=== PATIENT | male | born 1975 | race Caucasian/White ===

== ENCOUNTER 2020-04-08 09:24 | Outpatient (CLI) | payer MEDICARE, SELFPAY ==
[2020-04-08 09:54] LABS: Basophils Absolute Auto 0.03 K/mm3 (0.00-0.10); Basophils Percent Auto 0.5 % (0.0-1.0); Eosinophils Absolute Auto 0.12 K/mm3 (0.02-0.50); Eosinophils Percent Auto 1.9 % (1.0-6.0); Hematocrit 45.2 % (40.0-54.0); Hemoglobin 15.7 g/dL (14.0-18.0); Immature Granulocyte Absolute 0.02 K/mm3 (0.00-0.00); Immature Granulocyte Percent A 0.3 % (0.0-0.0); Lymphocytes Absolute Auto 1.99 K/mm3 (1.10-4.50); Lymphocytes Percent Auto 31.4 % (18.0-42.0); Mean Corpuscular HGB Conc 34.7 g/dL (32.0-36.0); Mean Corpuscular Hemoglobin 32.6 pg (27.0-31.0); Mean Platelet Volume 12.1 fl (8.7-11.0); Monocytes Absolute Auto 0.25 K/mm3 (0.10-0.90); Monocytes Percent Auto 3.9 % (2.0-11.0); Neutrophils Absolute Auto 3.9 K/mm3 (1.7-7.2); Platelet Count Result 172 K/mm3 (150-420); Red Blood Count 4.81 M/mm3 (4.70-6.10); Red Cell Distribution Width 12.6 % (11.6-14.4); White Blood Count 6.3 K/mm3 (4.8-10.8)
[2020-04-08 10:21] LABS: Anion Gap 10.7 mmol/L (7-16); Blood Urea Nitrogen 28 mg/dL (7-18); Calcium 8.6 mg/dL (8.5-10.1); Carbon Dioxide 29 mmol/L (21-32); Chloride 103 mmol/L (98-108); Estimated Glomerular Filt Rate 48; Glucose 93 mg/dL (70-99); Osmolality Calculated 291 mOsm/kg (285-295); Phosphorus 2.8 mg/dL (2.6-4.7); Potassium 4.7 mmol/L (3.5-5.1); Sodium 138 mmol/L (136-145)
== END 2020-04-08 09:25 | disposition home or self-care (01) ==
LOC: CHSLAB 09:27
PROVIDERS: PCP Internal Medicine; Visit Provider Internal Medicine Nephrology
DX: N18.9 Chronic kidney disease, unspecified (principal)
CPT/HCPCS: 36415; 80069; 85025

== ENCOUNTER 2020-08-26 09:12 | Outpatient (CLI) | payer MEDICARE, SELFPAY ==
[2020-08-26 09:23] LABS: Basophils Absolute Auto 0.02 K/mm3 (0.00-0.10); Basophils Percent Auto 0.3 % (0.0-1.0); Eosinophils Percent Auto 1.5 % (1.0-6.0); Hematocrit 44.3 % (40.0-54.0); Hemoglobin 14.9 g/dL (14.0-18.0); Immature Granulocyte Absolute 0.03 K/mm3 (0.00-0.00); Immature Granulocyte Percent A 0.4 % (0.0-0.0); Lymphocytes Absolute Auto 1.68 K/mm3 (1.10-4.50); Mean Corpuscular HGB Conc 33.6 g/dL (32.0-36.0); Mean Corpuscular Hemoglobin 31.7 pg (27.0-31.0); Mean Corpuscular Volume 94.3 fL (78.0-102.0); Mean Platelet Volume 11.8 fl (8.7-11.0); Monocytes Percent Auto 4.5 % (2.0-11.0); Neutrophils Absolute Auto 4.6 K/mm3 (1.7-7.2); Neutrophils Percent Auto 68.3 % (50.0-70.0); Platelet Count Result 157 K/mm3 (150-420); Red Cell Distribution Width 12.6 % (11.6-14.4); White Blood Count 6.7 K/mm3 (4.8-10.8)
[2020-08-26 09:53] LABS: Albumin Level 3.8 g/dL (3.4-5.0); Anion Gap 11 mmol/L (8-16); Blood Urea Nitrogen 28 mg/dL (7-18); Calcium 9.1 mg/dL (8.5-10.1); Carbon Dioxide 27 mmol/L (21-32); Chloride 104 mmol/L (98-108); Estimated Glomerular Filt Rate 48; Glucose 88 mg/dL (70-99); Osmolality Calculated 298 mOsm/kg (285-295); Phosphorus 4.2 mg/dL (2.6-4.7); Potassium 4.8 mmol/L (3.5-5.1); Sodium 142 mmol/L (136-145)
[2020-08-26 16:18] LABS: SARS-CoV-2 Ag Negative (Negative)
== END 2020-08-26 09:13 | disposition home or self-care (01) ==
PROVIDERS: PCP Internal Medicine; Visit Provider Internal Medicine Nephrology
DX: J06.9 Acute upper respiratory infection, unspecified (principal); N18.9 Chronic kidney disease, unspecified
CPT/HCPCS: 36415; 80069; 85025; 87426

== ENCOUNTER 2020-09-14 09:46 | Outpatient (CLI) | payer MEDICARE, SELFPAY ==
--- NOTE | ~2020-09-14 | XR_ITS ---
XR ribs RT 2V w CXR 2V DATE: 09/14/2020 11:04 INDICATION: Right lateral chest pain for 2 weeks, cough for 2 weeks. Shortness of breath. Covid expos ure. TECHNIQUE: PA and lateral chest. 3 views of the right ribs. COMPARISON: None FINDINGS: No fracture or bone destruction of the right rib cage is detected. Normal heart size. No hilar or mediastinal enlargement. No pulmonary infiltrate or consolidation, ple ural effusion or pulmonary vascular congestion or pneumothorax. IMPRESSION: No active cardiac pulmonary disease or right rib abnormality Reviewed, dictated and finalized at location A. FORM BUILDER
[2020-09-14 10:37] LABS: Basophils Absolute Auto 0.02 K/mm3 (0.00-0.10); Basophils Percent Auto 0.3 % (0.0-1.0); Eosinophils Percent Auto 1.5 % (1.0-6.0); Hematocrit 43.9 % (40.0-54.0); Hemoglobin 15.1 g/dL (14.0-18.0); Immature Granulocyte Absolute 0.02 K/mm3 (0.00-0.00); Immature Granulocyte Percent A 0.3 % (0.0-0.0); Lymphocytes Absolute Auto 1.65 K/mm3 (1.10-4.50); Lymphocytes Percent Auto 24.6 % (18.0-42.0); Mean Corpuscular HGB Conc 34.4 g/dL (32.0-36.0); Mean Corpuscular Hemoglobin 32.6 pg (27.0-31.0); Mean Corpuscular Volume 94.8 fL (78.0-102.0); Mean Platelet Volume 11.5 fl (8.7-11.0); Monocytes Absolute Auto 0.24 K/mm3 (0.10-0.90); Monocytes Percent Auto 3.6 % (2.0-11.0); Neutrophils Absolute Auto 4.7 K/mm3 (1.7-7.2); Neutrophils Percent Auto 69.7 % (50.0-70.0); Platelet Count Result 169 K/mm3 (150-420); Red Blood Count 4.63 M/mm3 (4.70-6.10); Red Cell Distribution Width 13.2 % (11.6-14.4); White Blood Count 6.7 K/mm3 (4.8-10.8)
[2020-09-14 10:56] LABS: D Dimer 0.19 mg/L (0.19-0.50)
[2020-09-14 10:57] LABS: SARS-CoV-2 Ag Negative (Negative)
[2020-09-14 11:01] LABS: Alanine Aminotransferase 31 U/L (16-63); Albumin Level 3.7 g/dL (3.4-5.0); Alkaline Phosphatase 88 U/L (46-116); Anion Gap 9 mmol/L (8-16); Aspartate Amino Transferase 15 U/L (15-37); Bilirubin,Total 0.2 mg/dL (0.00-1.00); Blood Urea Nitrogen 19 mg/dL (7-18); Calcium 8.7 mg/dL (8.5-10.1); Carbon Dioxide 26 mmol/L (21-32); Chloride 104 mmol/L (98-108); Creatine Kinase 91 U/L (39-308); Estimated Glomerular Filt Rate 58; Glucose 124 mg/dL (70-99); Osmolality Calculated 291 mOsm/kg (285-295); Potassium 3.8 mmol/L (3.5-5.1); Sodium 139 mmol/L (136-145); Total Protein 6.6 g/dL (6.4-8.2)
[2020-09-15 18:01] LABS: SARS-CoV-2 RNA PCR Negative
== END 2020-09-14 09:47 | disposition home or self-care (01) ==
LOC: CHSLAB 09:48
PROVIDERS: PCP Internal Medicine; Visit Provider Internal Medicine
DX: R07.9 Chest pain, unspecified (principal); R06.02 Shortness of breath; Z20.828 Contact with and (suspected) exposure to other viral communicable diseases
CPT/HCPCS: 36415; 71046; 71100; 80053; 82550; 82553; 84484; 85025; 85380; 87426; 87635; C9803; U0003

== ENCOUNTER 2021-01-28 11:20 | Outpatient (CLI) | payer MEDICARE, SELFPAY ==
[2021-01-28 11:34] LABS: Basophils Absolute Auto 0.04 K/mm3 (0.00-0.10); Basophils Percent Auto 0.6 % (0.0-1.0); Eosinophils Absolute Auto 0.12 K/mm3 (0.02-0.50); Eosinophils Percent Auto 1.8 % (1.0-6.0); Hematocrit 47.3 % (40.0-54.0); Hemoglobin 16.4 g/dL (14.0-18.0); Immature Granulocyte Absolute 0.02 K/mm3 (0.00-0.00); Immature Granulocyte Percent A 0.3 % (0.0-0.0); Lymphocytes Absolute Auto 1.28 K/mm3 (1.10-4.50); Lymphocytes Percent Auto 19.6 % (18.0-42.0); Mean Corpuscular HGB Conc 34.7 g/dL (32.0-36.0); Mean Corpuscular Hemoglobin 32.4 pg (27.0-31.0); Mean Corpuscular Volume 93.5 fL (78.0-102.0); Mean Platelet Volume 10.8 fl (8.7-11.0); Monocytes Absolute Auto 0.25 K/mm3 (0.10-0.90); Monocytes Percent Auto 3.8 % (2.0-11.0); Neutrophils Absolute Auto 4.8 K/mm3 (1.7-7.2); Neutrophils Percent Auto 73.9 % (50.0-70.0); Platelet Count Result 175 K/mm3 (150-420); Red Blood Count 5.06 M/mm3 (4.70-6.10); Red Cell Distribution Width 13.2 % (11.6-14.4); White Blood Count 6.5 K/mm3 (4.8-10.8)
[2021-01-28 12:32] LABS: Alanine Aminotransferase 40 U/L (16-63); Alkaline Phosphatase 86 U/L (46-116); Anion Gap 11 mmol/L (8-16); Aspartate Amino Transferase 16 U/L (15-37); Bilirubin,Total 0.2 mg/dL (0.00-1.00); Blood Urea Nitrogen 23 mg/dL (7-18); Calcium 8.8 mg/dL (8.5-10.1); Carbon Dioxide 26 mmol/L (21-32); Chloride 102 mmol/L (98-108); Estimated Glomerular Filt Rate > 60; Glucose 102 mg/dL (70-99); Osmolality Calculated 291 mOsm/kg (285-295); Phosphorus 3.4 mg/dL (2.6-4.7); Potassium 4.5 mmol/L (3.5-5.1); Sodium 139 mmol/L (136-145); Total Protein 6.8 g/dL (6.4-8.2)
== END 2021-01-28 11:21 | disposition home or self-care (01) ==
LOC: CHSLAB 11:22
PROVIDERS: PCP Internal Medicine; Visit Provider Internal Medicine
DX: N18.30 Chronic kidney disease, stage 3 unspecified (principal); Z01.84 Encounter for antibody response examination
CPT/HCPCS: 36415; 80053; 84100; 85025; 86769

== ENCOUNTER 2022-01-16 11:28 | Outpatient (CLI) | payer MEDICARE, SELFPAY ==
[2022-01-16 11:43] LABS: Basophils Absolute Auto 0.04 K/mm3 (0.00-0.10); Basophils Percent Auto 0.5 % (0.0-1.0); Eosinophils Absolute Auto 0.12 K/mm3 (0.02-0.50); Eosinophils Percent Auto 1.4 % (1.0-6.0); Hematocrit 49.6 % (40.0-54.0); Hemoglobin 16.5 g/dL (14.0-18.0); Immature Granulocyte Absolute 0.03 K/mm3 (0.00-0.00); Immature Granulocyte Percent A 0.3 % (0.0-0.0); Lymphocytes Absolute Auto 1.77 K/mm3 (1.10-4.50); Lymphocytes Percent Auto 20.3 % (18.0-42.0); Mean Corpuscular HGB Conc 33.3 g/dL (32.0-36.0); Mean Corpuscular Hemoglobin 31.8 pg (27.0-31.0); Mean Corpuscular Volume 95.6 fL (78.0-102.0); Mean Platelet Volume 12.1 fl (8.7-11.0); Monocytes Absolute Auto 0.38 K/mm3 (0.10-0.90); Monocytes Percent Auto 4.4 % (2.0-11.0); Neutrophils Absolute Auto 6.4 K/mm3 (1.7-7.2); Neutrophils Percent Auto 73.1 % (50.0-70.0); Platelet Count Result 144 K/mm3 (150-420); Red Blood Count 5.19 M/mm3 (4.70-6.10); Red Cell Distribution Width 12.7 % (11.6-14.4); White Blood Count 8.7 K/mm3 (4.8-10.8)
[2022-01-16 11:46] LABS: Add Urine Microscopic? NO; Appearance Urine Clear (Clear); Bilirubin Urine Negative (Negative); Blood Urine Negative (Negative); Color Urine Yellow (Yellow); Glucose Urine UA Negative (Negative); Ketones Urine Negative (Negative); Leukocyte Esterase Ur Negative (Negative); Nitrate Urine Negative (Negative); Protein Urine Negative (Negative); Specific Grav Ur 1.015 (1.010-1.020); Urobilinogen Urine 0.2 mg/dL (0.2-1.0); pH Urine 5.5 (5.0-8.0)
[2022-01-16 12:01] LABS: Alanine Aminotransferase 26 U/L (16-63); Alkaline Phosphatase 71 U/L (46-116); Anion Gap 6 mmol/L (8-16); Aspartate Amino Transferase 16 U/L (15-37); Bilirubin,Total 0.2 mg/dL (0.00-1.00); Blood Urea Nitrogen 28 mg/dL (7-18); Calcium 9.2 mg/dL (8.5-10.1); Carbon Dioxide 29 mmol/L (21-32); Chloride 102 mmol/L (98-108); Cholesterol 254 mg/dL (0-200); Estimated Glomerular Filt Rate 58; Glucose 98 mg/dL (70-99); HDL Direct 31 mg/dL (40-60); LDL Cholesterol Calculated 167 mg/dL (<130); Osmolality Calculated 289 mOsm/kg (285-295); Phosphorus 3.4 mg/dL (2.6-4.7); Potassium 4.2 mmol/L (3.5-5.1); Sodium 137 mmol/L (136-145); Total Protein 6.9 g/dL (6.4-8.2); Triglycerides 278 mg/dL (0-150)
[2022-01-18 14:27] LABS: Vitamin D 25 Hydroxy 46 ng/mL (30-100)
== END 2022-01-16 11:29 | disposition home or self-care (01) ==
LOC: CHSLAB 11:31
PROVIDERS: PCP Internal Medicine; Visit Provider Internal Medicine Nephrology
DX: E78.5 Hyperlipidemia, unspecified (principal); I10 Essential (primary) hypertension; N18.9 Chronic kidney disease, unspecified; N25.0 Renal osteodystrophy; E55.9 Vitamin D deficiency, unspecified
CPT/HCPCS: 36415; 80053; 80061; 81003; 82306; 84100; 85025

== ENCOUNTER 2022-07-24 10:15 | Outpatient (CLI) | payer MEDICARE, SELFPAY ==
[2022-07-24 10:37] LABS: Basophils Absolute Auto 0.03 K/mm3 (0.00-0.10); Basophils Percent Auto 0.4 % (0.0-1.0); Eosinophils Percent Auto 1.2 % (1.0-6.0); Hematocrit 46.5 % (40.0-54.0); Hemoglobin 16.1 g/dL (14.0-18.0); Immature Granulocyte Absolute 0.02 K/mm3 (0.00-0.00); Immature Granulocyte Percent A 0.2 % (0.0-0.0); Lymphocytes Absolute Auto 1.85 K/mm3 (1.10-4.50); Lymphocytes Percent Auto 22.2 % (18.0-42.0); Mean Corpuscular HGB Conc 34.6 g/dL (32.0-36.0); Mean Corpuscular Hemoglobin 33.3 pg (27.0-31.0); Mean Corpuscular Volume 96.1 fL (78.0-102.0); Mean Platelet Volume 11.9 fl (8.7-11.0); Monocytes Absolute Auto 0.35 K/mm3 (0.10-0.90); Monocytes Percent Auto 4.2 % (2.0-11.0); Neutrophils Percent Auto 71.8 % (50.0-70.0); Platelet Count Result 144 K/mm3 (150-420); Red Blood Count 4.84 M/mm3 (4.70-6.10); Red Cell Distribution Width 12.8 % (11.6-14.4); White Blood Count 8.3 K/mm3 (4.8-10.8)
[2022-07-24 10:39] LABS: Add Urine Microscopic? YES; Appearance Urine Clear (Clear); Bilirubin Urine Negative (Negative); Blood Urine Negative (Negative); Color Urine Yellow (Yellow); Glucose Urine UA Negative (Negative); Ketones Urine Trace (Negative); Leukocyte Esterase Ur Negative (Negative); Nitrate Urine Negative (Negative); Protein Urine Negative (Negative); Urobilinogen Urine 0.2 mg/dL (0.2-1.0)
[2022-07-24 10:46] LABS: Bacteria Urine Trace /hpf; Mucus Urine Few /lpf; RBC Urine 0-2 /hpf (0-2); WBC Urine None seen /hpf (0-3)
[2022-07-24 10:55] LABS: Alanine Aminotransferase 30 U/L (16-63); Alkaline Phosphatase 71 U/L (46-116); Anion Gap 7 mmol/L (8-16); Aspartate Amino Transferase 17 U/L (15-37); Bilirubin,Total 0.4 mg/dL (0.00-1.00); Blood Urea Nitrogen 30 mg/dL (7-18); Calcium 8.8 mg/dL (8.5-10.1); Carbon Dioxide 26 mmol/L (21-32); Chloride 103 mmol/L (98-108); Cholesterol 231 mg/dL (0-200); Estimated Glomerular Filt Rate 53; Glucose 94 mg/dL (70-99); HDL Direct 33 mg/dL (40-60); LDL Cholesterol Calculated 166 mg/dL (<130); Osmolality Calculated 288 mOsm/kg (285-295); Potassium 4.3 mmol/L (3.5-5.1); Sodium 136 mmol/L (136-145); Total Protein 6.8 g/dL (6.4-8.2); Triglycerides 162 mg/dL (0-150)
== END 2022-07-24 10:16 | disposition home or self-care (01) ==
LOC: CHSLAB 10:17
PROVIDERS: PCP Internal Medicine; Visit Provider Internal Medicine
DX: E78.5 Hyperlipidemia, unspecified (principal); I10 Essential (primary) hypertension
CPT/HCPCS: 36415; 80053; 80061; 81001; 85025

== ENCOUNTER 2022-08-15 16:57 | Outpatient (CLI) | payer MEDICARE, SELFPAY ==
[2022-08-15 17:57] LABS: Hematocrit 48.1 % (40.0-54.0); Hemoglobin 16.4 g/dL (14.0-18.0); Mean Corpuscular HGB Conc 34.1 g/dL (32.0-36.0); Mean Corpuscular Volume 96.8 fL (78.0-102.0); Mean Platelet Volume 12.9 fl (8.7-11.0); Platelet Count Result 139 K/mm3 (150-420); Red Blood Count 4.97 M/mm3 (4.70-6.10); Red Cell Distribution Width 12.9 % (11.6-14.4); White Blood Count 8.3 K/mm3 (4.8-10.8)
[2022-08-15 18:13] LABS: Alanine Aminotransferase 30 U/L (16-63); Albumin Level 3.9 g/dL (3.4-5.0); Alkaline Phosphatase 69 U/L (46-116); Anion Gap 9 mmol/L (8-16); Aspartate Amino Transferase 17 U/L (15-37); Bilirubin,Total 0.3 mg/dL (0.00-1.00); Blood Urea Nitrogen 35 mg/dL (7-18); Calcium 9.1 mg/dL (8.5-10.1); Carbon Dioxide 30 mmol/L (21-32); Chloride 106 mmol/L (98-108); Estimated Glomerular Filt Rate 41; Glucose 89 mg/dL (70-99); Osmolality Calculated 307 mOsm/kg (285-295); Potassium 4.4 mmol/L (3.5-5.1); Sodium 145 mmol/L (136-145); Total Protein 6.4 g/dL (6.4-8.2)
[2022-08-19 10:40] LABS: Parathyroid Intact 33 pg/mL (14-64)
[2022-08-22 20:00] LABS: Vitamin D 25 Hydroxy 59 ng/mL (30-100)
== END 2022-08-15 16:58 | disposition home or self-care (01) ==
LOC: CHSLAB 17:00
PROVIDERS: PCP Internal Medicine; Visit Provider Internal Medicine Nephrology
DX: N18.31 Chronic kidney disease, stage 3a (principal)
CPT/HCPCS: 36415; 80053; 82306; 83970; 85027

== ENCOUNTER 2022-09-12 09:29 | Outpatient (CLI) | payer MEDICARE, SELFPAY ==
[2022-09-12 09:46] LABS: Basophils Absolute Auto 0.03 K/mm3 (0.00-0.10); Basophils Percent Auto 0.4 % (0.0-1.0); Eosinophils Absolute Auto 0.12 K/mm3 (0.02-0.50); Eosinophils Percent Auto 1.5 % (1.0-6.0); Hemoglobin 17.3 g/dL (14.0-18.0); Immature Granulocyte Absolute 0.02 K/mm3 (0.00-0.00); Immature Granulocyte Percent A 0.2 % (0.0-0.0); Lymphocytes Absolute Auto 1.63 K/mm3 (1.10-4.50); Mean Corpuscular HGB Conc 34.6 g/dL (32.0-36.0); Mean Corpuscular Volume 95.2 fL (78.0-102.0); Mean Platelet Volume 12.2 fl (8.7-11.0); Monocytes Absolute Auto 0.29 K/mm3 (0.10-0.90); Monocytes Percent Auto 3.6 % (2.0-11.0); Neutrophils Absolute Auto 6.1 K/mm3 (1.7-7.2); Neutrophils Percent Auto 74.3 % (50.0-70.0); Platelet Count Result 138 K/mm3 (150-420); Red Blood Count 5.25 M/mm3 (4.70-6.10); Red Cell Distribution Width 12.9 % (11.6-14.4); White Blood Count 8.1 K/mm3 (4.8-10.8)
[2022-09-12 10:01] LABS: Hemoglobin A1C 5.3 % (<5.7)
[2022-09-12 10:45] LABS: Alanine Aminotransferase 20 U/L (16-63); Albumin Level 3.9 g/dL (3.4-5.0); Alkaline Phosphatase 75 U/L (46-116); Anion Gap 10 mmol/L (8-16); Aspartate Amino Transferase 13 U/L (15-37); Bilirubin Direct 0.1 mg/dL (0-0.2); Bilirubin,Total 0.3 mg/dL (0.00-1.00); Blood Urea Nitrogen 24 mg/dL (7-18); Calcium 8.8 mg/dL (8.5-10.1); Carbon Dioxide 27 mmol/L (21-32); Chloride 105 mmol/L (98-108); Cholesterol 221 mg/dL (0-200); Estimated Glomerular Filt Rate 60; Glucose 96 mg/dL (70-99); HDL Direct 31 mg/dL (40-60); LDL Cholesterol Calculated 126 mg/dL (<130); Osmolality Calculated 298 mOsm/kg (285-295); Phosphorus 3.1 mg/dL (2.6-4.7); Potassium 4.5 mmol/L (3.5-5.1); Sodium 142 mmol/L (136-145); Thyroid Stimulating Hormone 0.74 uIU/mL (0.36-3.74); Total Protein 6.5 g/dL (6.4-8.2); Triglycerides 321 mg/dL (0-150)
[2022-09-12 10:58] LABS: Partial Thromboplastin Time 31.2 SEC (23.90-30.70); Prothrombin Time 10.8 Seconds (9.50-12.10)
[2022-09-14 19:35] LABS: Vitamin D 25 Hydroxy 56 ng/mL (30-100)
== END 2022-09-12 09:30 | disposition home or self-care (01) ==
PROVIDERS: Anesthesiology; PCP Internal Medicine
DX: N18.9 Chronic kidney disease, unspecified (principal); Z79.899 Other long term (current) drug therapy
CPT/HCPCS: 36415; 80053; 80061; 82248; 82306; 83036; 84100; 84443; 85025; 85610; 85730

== ENCOUNTER 2022-09-19 10:27 | Day surgery (SDC) | payer MEDICARE, SELFPAY ==
[2022-09-05 10:47] VITALS: BMI 26.5
--- NOTE | 2022-09-05 10:57 | PC.NURSE ---
Report to the Outpatient Waiting Room, entrance under the green pavilion located off [facility], at time 1000 on date 09/19/22. Planned Procedure Time: 1200. Time changes happen often and if your time is changed the preop area will call you the afternoon before. - You and your visitor will be asked to self-screen and do not enter if you have any COVID symptoms. - Only one visitor is requested with a max of two and NO children visitors are allowed at this time. - The patient visitor may be requested to leave or wait in car when not with patient due to distancing restrictions. - A mask is REQUIRED within the hospital. Patients may have clear liquids (water, carbonated beverages, clear teas, apple juice) until 3 hours prior to surgery with a maximum of 20 ounces. - No food from midnight until time of surgery Take the following medications with a SIP of water the morning of surgery: MIRTAZAPINE, SERTRALINE, VERAPAMIL Medications to discontinue per physician: N/A Date to take last dose: N/A Please no make-up, nail macedonian, hairspray, perfume, deodorant, or body powder the day of surgery. No jewelry (including any body piercings) or valuables the day of surgery, leave them at home. Please take a shower or bath the night before, or the morning of, surgery with an antibacterial soap (HIBICLENS). Wear comfortable, loose fitting clothing. - Jewelry must be removed prior to entering the operating room. Rings and piercings that are not removed may be cut off. - The hospital will not accept responsibility for valuables. - Please leave all valuables, including medications, at home the day of surgery. If you are going home after surgery, a licensed hazmat cdl a driver must drive you home. - NO public transportation without another adult if you receive anesthesia. - We recommend that an adult stay with you for 24 hours following discharge. - We also recommend that you do not drive, make important decision, drink alcoholic beverages, or take any drugs that were not prescribed by your health care provider for at least 24 hours after your discharge time. Follow any additional instructions given to you from your surgeon. If you or anyone in your household have experienced Covid symptoms in the past week, please notify your surgeon or the nurse liaison at the phone number below for possible testing. Telephone instructions given to PT - WALLY JACOBSON and asked if any additional questions and then verbalized understanding. Patient advised to call surgeon office or pre surgery nurse liaison [phone] if any additional questions.
[2022-09-19] VITALS (13 sets, daily range): BP systolic 109–130; BP diastolic 73–93; PULSE 54–83; RESP 12–20; TEMP 36.2–36.7; O2SAT 95–100
--- NOTE | 2022-09-19 10:27 | ECG_ITS ---
Measurements Intervals [place] Rate: 64 P: 67 ME: 165 QRS: 42 QRSD: 87 T: 38 QT: 389 QTc: 404 Interpretive Statements SINUS RHYTHM NORMAL ECG NO PREVIOUS ECG AVAILABLE FOR COMPARISON Electronically Signed On 09-19-2022 11:51:24 STRADDLE CARRIER OPERATOR by Jhon Fonseca D.O.
--- NOTE | 2022-09-19 11:06 | WPDANESEPPF ---
Anes - Initial Pre Proc Eval Procedure: Operation Date: 09/19/22 13:00 Proposed Procedures p Laparoscopic Recurrent Right Inguinal Hernia Repair with Mesh, Left Inguinal Hernia Repair with Mesh, Davinci Assisted, - Telly Khanna DO s Open Umbilical Hernia Repair - Telly Khanna DO Date/Time: 09/19/22 11:06 Surgeon: Telly Khanna DO Pre Op Diagnosis: recurrent rt ing hernia,left ing hernia, umb aly Patient Data Age: 47 Gender: M Height: 1.93 m Weight: 99 kg Allergies Allergy/AdvReac Type Severity Reaction Status Date / Time No Known Allergies Allergy Verified 09/05/22 10:45 Home Medications Medication Instructions Recorded Confirmed Type clonazepam 0.5 mg tablet 0.25 mg PO BID 07/31/22 09/19/22 History losartan 100 mg tablet 100 mg PO DAILY 07/31/22 09/19/22 History mirtazapine 30 mg tablet 30 mg PO DAILY 07/31/22 09/19/22 History sertraline 150 mg capsule 150 mg PO DAILY 07/31/22 09/19/22 History verapamil 240 mg 24 hr 240 mg PO DAILY 07/31/22 09/19/22 History capsule,extended release Patient hx anesthesia problems: none Family hx anesthesia problems: none Results Review: All pre-operative results and documents have been reviewed as part of the pre-operative evaluation. [facility] Past Medical History Medical History (Updated 09/19/22 @ 11:07 by Paolo Gaspar DO) CKD (chronic kidney disease) Depression with anxiety High cholesterol Hypertension KENNY (obstructive sleep apnea) Polycystic liver disease Surgical History Surgical History H/O right inguinal hernia repair H/O vasectomy Family History Family History Father Heart disease Mother , 54 Hypertension Cancer of kidney Sibling , 51 Diabetes mellitus Heart disease Social History Social History Smoking packs per day: 1 Smoking cigarettes per day: 20.0 Years smoked: 30 Smoking pack-years: 30.00 Smoking status: Current every day smoker Tobacco type: cigarettes Alcohol intake: never Substance use: current Substance use type: marijuana Living arrangements: with family Additional occupation/education comments: disabled Spiritual care concerns: No Anes - Eval Final PreProcedure Day of Procedure 09/19/22 11:06 Patient weight: overweight Heart: regular rate and rhythm Lungs: clear to auscultation Airway: Mallampati scale class 1 Neurological: alert and oriented Last oral intake: >/= 8 hours ASA classification: III Emergent: no Anesthetic plan: proceed Anesthesia type and monitoring: general ETT and standard monitoring Results Review: All pre-operative results and documents have been reviewed as part of the pre-operative evaluation. Informed Consent: The patient's anesthetic plan and its attendant risks and benefits were discussed with the patient/family/POA. Questions were solicited and answers provided to the satisfaction of the patient/family/POA.
[2022-09-19] MEDS: ACETAMINOPHEN 500 MG TABLET 1000 MG PO (11:10)
[2022-09-19] MEDS: LACTATED RINGERS 1,000 ML 30 ML IV CONT ×3 (11:15→16:50)
[2022-09-19] MEDS: KETOROLAC 15 MG/ML VIAL (*BKC) IV PUSH (11:29)
[2022-09-19 11:43] LABS: Partial Thromboplastin Time 29.6 SECONDS (22.3-36.8)
--- NOTE | 2022-09-19 13:27 | PM.IMHP ---
H&P: HPI History of Present Illness Date/Time: 09/19/22 13:27 Chief Complaint: recurrent right inguinal hernia, left inguinal hernia, umbilical hernia Narrative: 47 yo man presents for multiple hernia repairs. He denies any changes since last seen in office. Review of Systems Review of Systems: All systems reviewed & are unremarkable except as noted in HPI and below Constitutional: Constitutional: Denies chills, Denies fever(s), Denies headache(s) and Denies weight loss Eyes: Eyes: Denies change in vision ENT: Denies dizziness, Denies headache(s), Denies neck mass and Denies throat swelling Cardiovascular: Cardiovascular: Denies chest pain, Denies lightheadedness and Denies dyspnea Respiratory: Respiratory: Denies cough, Denies dyspnea and Denies wheezing Gastrointestinal: Gastrointestinal: Denies abdominal pain, Denies change in bowel habits, Denies nausea and Denies vomiting Genitourinary: Genitourinary: Denies hematuria and Denies dysuria Musculoskeletal: Musculoskeletal: Reports as per HPI Integumentary/Breasts: Skin/Breast: Reports as per HPI Neurologic: Denies dizziness and Denies headache(s) Allergic/Immunologic: Allergic/Immunologic: Denies throat swelling and Denies wheezing PMFSH Past Medical History Medical History (Updated 09/19/22 @ 11:07 by Paolo Gaspar DO) CKD (chronic kidney disease) Depression with anxiety High cholesterol Hypertension KENNY (obstructive sleep apnea) Polycystic liver disease Surgical History Surgical History H/O right inguinal hernia repair H/O vasectomy Family History Family History Father Heart disease Mother , 54 Hypertension Cancer of kidney Sibling , 51 Diabetes mellitus Heart disease Social History Social History Smoking packs per day: 1 Smoking cigarettes per day: 20.0 Years smoked: 30 Smoking pack-years: 30.00 Smoking status: Current every day smoker Tobacco type: cigarettes Alcohol intake: never Substance use: current Substance use type: marijuana Living arrangements: with family Additional occupation/education comments: disabled Spiritual care concerns: No Meds Home Medications and Allergies Home Medications Medication Instructions Recorded Confirmed Type clonazepam 0.5 mg tablet 0.25 mg PO BID 07/31/22 09/19/22 History losartan 100 mg tablet 100 mg PO DAILY 07/31/22 09/19/22 History mirtazapine 30 mg tablet 30 mg PO DAILY 07/31/22 09/19/22 History sertraline 150 mg capsule 150 mg PO DAILY 07/31/22 09/19/22 History verapamil 240 mg 24 hr 240 mg PO DAILY 07/31/22 09/19/22 History capsule,extended release Allergies Allergy/AdvReac Type Severity Reaction Status Date / Time No Known Allergies Allergy Verified 09/05/22 10:45 Vital Signs Vital Signs - 24 hr 09/19/22 10:48 Temperature 36.7 C Pulse Rate 69 Respiratory Rate 20 Blood Pressure 114/75 Pulse Oximetry 99 Oxygen Delivery Room Air Exam Const: General: no acute distress and alert Orientation/consciousness: patient oriented x3 HENMT: Head: normocephalic and atraumatic Ears: hearing grossly normal bilaterally Face/Nose/Sinus: Normal nares present Mouth: Yes Normal oral and palatal mucosa present Eyes: Periorbital: periorbital findings normal Sclera: sclerae normal EOM: EOMs intact bilaterally Neck: Neck: normal visual inspection, no lymphadenopathy and trachea midline Chest: Chest palpation & inspection: normal inspection of the chest Resp: Effort & Inspection: normal respiratory effort Auscultation: clear to auscultation bilaterally Cardio: Jugular venous distension: no JVD Rate: regular rate Rhythm: regular rhythm Heart sounds: S1 normal heart sound present and S2 normal heart sound present Peripheral pulses: Per
--- NOTE | 2022-09-19 13:32 | WPDHPUPDATE1 ---
History and Physical Update Update Date/Time: 09/19/22 13:32 History and Physical has been reviewed, including an updated exam of the patient. There are NO changes in the patient's condition. Risks, benefits, and alternatives have been discussed and questions answered. Patient agrees to proceed with procedure.
[2022-09-19] MEDS: ceFAZolin 2 GM/D5W 50 ML 2 GM/50 ML BAG IVPB (13:51)
[2022-09-19] MEDS: BUPIVACAINE/EPINEPHRINE 0.5% 30 ML VIAL INFILTRATE (14:26)
--- NOTE | 2022-09-19 15:46 | W.PM.PROC2 ---
Procedure Note - Detailed Date of Procedure 09/19/22 Pre-op Diagnosis 1. Umbilical hernia 2. Recurrent right inguinal hernia 3. Left inguinal hernia Post-op Diagnosis Same Procedure Performed 1. 1 cm umbilical hernia repair 2. Laparoscopic recurrent right inguinal hernia repair with mesh, da Meggan assisted 3. Laparoscopic left inguinal hernia repair with mesh, da Meggan assisted Surgeon Telly Khanna, DO Anesthesia General and Local (0.5% bupivacaine with epinephrine) Indications This is a 47-year-old man who presented with a bulge in his left groin that he noticed about 6 months ago. He states that he felt a pop and noticed a bulge. He has minimal discomfort associated with this. He also notices a small recurrent bulge in the right groin region and a bulge at his umbilicus. He has a history of an open right inguinal hernia repair in 2009. On exam he was found to have a small umbilical hernia containing fat, a small reducible recurrent right inguinal hernia, and a moderate-sized reducible left inguinal hernia. Discussions were made with the patient about treatment options and decision was made to proceed with open umbilical hernia repair and robotic assisted laparoscopic bilateral inguinal hernia repairs. Findings Upon entering the abdomen laparoscopically, the patient was found to have a moderate-sized reducible indirect left inguinal hernia and a small direct recurrent right inguinal hernia. Just above this in the lower abdomen there were also possible small bilateral spigelian hernias developing, however this just appeared to be a small dimple in the peritoneum in that region of the normal location for a spigelian hernia. When inspecting the remainder of the abdomen, there did appear to be a large retroperitoneal cyst that was bulging up just inferior to the transverse colon. This appeared soft and non pulsatile and was just to the right of midline possibly representing a pancreatic cyst, duodenal cyst, or kidney cyst. This was left alone due to no prior imaging to confirm its origin. The recurrent right inguinal hernia appeared to be in the same location of the prior plug. The plug still appeared in proper position but some of the hernia sac was protruding just superior to this. Robotic transabdominal preperitoneal approach was utilized for each side. Once the hernia sac was reduced and a wide enough preperitoneal pocket was created on each side, I then placed a large 3DMax mid mesh overlying the myopectineal orifice on each side. No specimens were obtained for pathology. The umbilical hernia measured about 1 cm and was repaired using 0 Ethibond [id number] sutures. A total of 2 sutures placed transversely to approximate the fascia. Description of Procedure Procedure as well as risks, benefits, and alternatives were discussed with the patient. Written consent was obtained and placed in chart prior to procedure. Patient was brought back to surgical suite. He was placed supine on operating table. Time-out was done to confirm patient and procedure. He was then intubated by Anesthesia Department. His abdomen was prepped and draped in sterile fashion using chlorhexidine prep. 0.5% bupivacaine with epinephrine was infiltrated at each location for incision. A 12 millimeter transverse incision was made just superior to the umbilicus using a 15 blade scalpel. Blunt dissection was carried out down to the linea alba. A vertical incision was made at the linea alba using a 15 blade scalpel. The peritoneum was then bluntly entered. A 12 millimeter trocar was inserted and carbon dioxide insufflation was used to create a pneumoperitoneum. A camera was inserted and the abdominal cavity was inspected. The patient was placed in slight Trendelenburg position. An 8 millimeter incision was made on the right lateral abdomen and an 8 millimeter trocar was inserted under direct visualization. Another 8 millimeter incision was made in the left lateral abdom
[2022-09-19] MEDS: fentaNYL CITRATE INJ (*CRX) 100 MCG/2 ML VIAL 25 MCG IV PUSH ×2 (16:47→16:50)
[2022-09-19] MEDS: oxyCODONE HCL (*CRX) 5 MG TAB IR PO (17:38)
== END 2022-09-19 20:14 | disposition home or self-care (01) ==
PROVIDERS: Anesthesiology; PCP Internal Medicine; Visit Provider Surgery
PROC: 8E0Y4CZ Robotic Assisted Procedure of Lower Extremity, Percutaneous Endoscopic Approach (ICD-10-PCS; CPT 49650; principal; 2022-09-19 13:00)
PROC: (CPT 49591; 2022-09-19 13:00)
DX: K42.9 Umbilical hernia without obstruction or gangrene (principal); K40.90 Unilateral inguinal hernia, without obstruction or gangrene, not specified as recurrent; K40.91 Unilateral inguinal hernia, without obstruction or gangrene, recurrent; I12.9 Hypertensive chronic kidney disease with stage 1 through stage 4 chronic kidney disease, or unspecified chronic kidney disease; N18.9 Chronic kidney disease, unspecified; E78.00 Pure hypercholesterolemia, unspecified; F41.8 Other specified anxiety disorders; G47.33 Obstructive sleep apnea (adult) (pediatric); K76.89 Other specified diseases of liver; F17.210 Nicotine dependence, cigarettes, uncomplicated; F12.90 Cannabis use, unspecified, uncomplicated
CPT/HCPCS: 49591; 49651; 49650; S2900; 36415; 85730; 86850; 86900; 86901; 93005; A9270; C1781; J0690; J1170; J1885; J2250; J3010; J7120

== ENCOUNTER 2023-01-03 10:45 | Outpatient (CLI) | payer MEDICARE, SELFPAY ==
[2023-01-03 10:59] LABS: Hematocrit 52.9 % (40.0-54.0); Mean Corpuscular Hemoglobin 32.8 pg (27.0-31.0); Mean Corpuscular Volume 96.4 fL (78.0-102.0); Mean Platelet Volume 12.1 fl (8.7-11.0); Platelet Count Result 145 K/mm3 (150-420); Red Blood Count 5.49 M/mm3 (4.70-6.10); Red Cell Distribution Width 12.7 % (11.6-14.4)
[2023-01-03 11:26] LABS: Alanine Aminotransferase 27 U/L (16-63); Albumin Level 4.2 g/dL (3.4-5.0); Alkaline Phosphatase 87 U/L (46-116); Anion Gap 8 mmol/L (8-16); Aspartate Amino Transferase 16 U/L (15-37); Bilirubin,Total 0.3 mg/dL (0.00-1.00); Blood Urea Nitrogen 29 mg/dL (7-18); Calcium 9.4 mg/dL (8.5-10.1); Carbon Dioxide 30 mmol/L (21-32); Chloride 102 mmol/L (98-108); Estimated Glomerular Filt Rate 49; Glucose 91 mg/dL (70-99); Osmolality Calculated 295 mOsm/kg (285-295); Phosphorus 3.8 mg/dL (2.6-4.7); Potassium 4.8 mmol/L (3.5-5.1); Sodium 140 mmol/L (136-145)
[2023-01-07 21:30] LABS: Parathyroid Intact 43 pg/mL (14-64)
[2023-01-10 13:41] LABS: Vitamin D 25 Hydroxy 46 ng/mL (30-100)
== END 2023-01-03 10:46 | disposition home or self-care (01) ==
LOC: CHSLAB 10:47
PROVIDERS: PCP Internal Medicine; Visit Provider Internal Medicine Nephrology
DX: N18.31 Chronic kidney disease, stage 3a (principal)
CPT/HCPCS: 36415; 80053; 82306; 83970; 84100; 85027

== ENCOUNTER 2023-08-07 14:40 | Outpatient (CLI) | payer MEDICARE, SELFPAY ==
[2023-08-07 14:56] LABS: Basophils Absolute Auto 0.03 K/mm3 (0.00-0.10); Basophils Percent Auto 0.4 % (0.0-1.0); Eosinophils Percent Auto 1.4 % (1.0-6.0); Hematocrit 49.3 % (40.0-54.0); Hemoglobin 16.9 g/dL (14.0-18.0); Immature Granulocyte Absolute 0.02 K/mm3 (0.00-0.00); Immature Granulocyte Percent A 0.3 % (0.0-0.0); Lymphocytes Absolute Auto 1.64 K/mm3 (1.10-4.50); Lymphocytes Percent Auto 23.1 % (18.0-42.0); Mean Corpuscular HGB Conc 34.3 g/dL (32.0-36.0); Mean Corpuscular Hemoglobin 32.9 pg (27.0-31.0); Mean Corpuscular Volume 95.9 fL (78.0-102.0); Monocytes Absolute Auto 0.31 K/mm3 (0.10-0.90); Monocytes Percent Auto 4.4 % (2.0-11.0); Neutrophils Percent Auto 70.4 % (50.0-70.0); Platelet Count Result 139 K/mm3 (150-420); Red Blood Count 5.14 M/mm3 (4.70-6.10); Red Cell Distribution Width 12.7 % (11.6-14.4); White Blood Count 7.1 K/mm3 (4.8-10.8)
[2023-08-07 15:34] LABS: Albumin Level 3.5 g/dL (3.4-5.0); Alkaline Phosphatase 81 U/L (46-116); Anion Gap 5 mmol/L (8-16); Bilirubin,Total 0.3 mg/dL (0.00-1.00); Blood Urea Nitrogen 28 mg/dL (7-18); Calcium 9.1 mg/dL (8.5-10.1); Carbon Dioxide 34 mmol/L (21-32); Chloride 102 mmol/L (98-108); Cholesterol 235 mg/dL (0-200); Estimated Glomerular Filt Rate 44; Glucose 103 mg/dL (70-99); HDL Direct 27 mg/dL (40-60); Osmolality Calculated 297 mOsm/kg (285-295); Potassium 4.5 mmol/L (3.5-5.1); Sodium 141 mmol/L (136-145); Total Protein 6.2 g/dL (6.4-8.2)
[2023-08-07 15:44] LABS: LDL Cholesterol Calculated 61 mg/dL (<130); Triglycerides 735 mg/dL (0-150)
[2023-08-07 15:45] LABS: LDL Cholesterol Direct 123 mg/dL (0-130)
[2023-08-07 15:50] LABS: Alanine Aminotransferase 21 U/L (16-63); Aspartate Amino Transferase 19 U/L (15-37)
== END 2023-08-07 14:41 | disposition home or self-care (01) ==
PROVIDERS: PCP Internal Medicine; Visit Provider Internal Medicine
DX: N18.2 Chronic kidney disease, stage 2 (mild) (principal); I12.9 Hypertensive chronic kidney disease with stage 1 through stage 4 chronic kidney disease, or unspecified chronic kidney disease; E78.5 Hyperlipidemia, unspecified
CPT/HCPCS: 36415; 80053; 80061; 83721; 85025

== ENCOUNTER 2023-10-09 16:39 | Outpatient (CLI) | payer MEDICARE, SELFPAY ==
[2023-10-09 16:56] LABS: Basophils Absolute Auto 0.03 K/mm3 (0.00-0.10); Basophils Percent Auto 0.4 % (0.0-1.0); Eosinophils Absolute Auto 0.09 K/mm3 (0.02-0.50); Eosinophils Percent Auto 1.2 % (1.0-6.0); Hematocrit 47.6 % (40.0-54.0); Hemoglobin 15.9 g/dL (14.0-18.0); Immature Granulocyte Absolute 0.01 K/mm3 (0.00-0.00); Immature Granulocyte Percent A 0.1 % (0.0-0.0); Immature Platelet Fraction Pct 7.1 % (1.0-7.0); Lymphocytes Absolute Auto 1.78 K/mm3 (1.10-4.50); Lymphocytes Percent Auto 24.3 % (18.0-42.0); Mean Corpuscular HGB Conc 33.4 g/dL (32.0-36.0); Mean Corpuscular Hemoglobin 31.9 pg (27.0-31.0); Mean Corpuscular Volume 95.6 fL (78.0-102.0); Mean Platelet Volume 11.6 fl (8.7-11.0); Monocytes Absolute Auto 0.32 K/mm3 (0.10-0.90); Monocytes Percent Auto 4.4 % (2.0-11.0); Neutrophils Absolute Auto 5.1 K/mm3 (1.7-7.2); Neutrophils Percent Auto 69.6 % (50.0-70.0); Platelet Count Result 143 K/mm3 (150-420); Red Blood Count 4.98 M/mm3 (4.70-6.10); Red Cell Distribution Width 12.8 % (11.6-14.4); White Blood Count 7.3 K/mm3 (4.8-10.8)
[2023-10-09 18:19] LABS: Alanine Aminotransferase 24 U/L (16-63); Alkaline Phosphatase 75 U/L (46-116); Anion Gap 13 mmol/L (8-16); Aspartate Amino Transferase 19 U/L (15-37); Bilirubin,Total 0.3 mg/dL (0.00-1.00); Blood Urea Nitrogen 29 mg/dL (7-18); CRP 0.6 mg/dL (0.0-0.9); Calcium 9.2 mg/dL (8.5-10.1); Carbon Dioxide 28 mmol/L (21-32); Chloride 103 mmol/L (98-108); Estimated Glomerular Filt Rate 47; Glucose 95 mg/dL (70-99); Osmolality Calculated 303 mOsm/kg (285-295); Potassium 4.4 mmol/L (3.5-5.1); Sodium 144 mmol/L (136-145); Total Protein 6.7 g/dL (6.4-8.2)
== END 2023-10-09 16:40 | disposition home or self-care (01) ==
LOC: CHSLAB 16:42
PROVIDERS: PCP Internal Medicine; Visit Provider Internal Medicine
DX: I12.9 Hypertensive chronic kidney disease with stage 1 through stage 4 chronic kidney disease, or unspecified chronic kidney disease (principal); N18.2 Chronic kidney disease, stage 2 (mild); R51.9 Headache, unspecified
CPT/HCPCS: 36415; 80053; 85025; 85055; 86140

== ENCOUNTER 2023-11-07 14:33 | Outpatient (CLI) | payer MEDICARE, SELFPAY ==
--- NOTE | ~2023-11-07 | XR_ITS ---
EXAMINATION: [id number]_[id number]_CR DATE: 11/07/2023 14:56 INDICATION: Headache. Left arm numbness. TECHNIQUE: 3 views of cervical spine were obtained. COMPARISON: None. FINDINGS: There is 4 degrees dextrocurvature of cervical spine. Vertebral body heights are normal. Th ere is mildly decreased disc height at C4-C5 and C5-C6. The facet joints are unremarkable. No central canal stenosis or prevertebral soft tissue swelling. IMPRESSION: 1. Mild cervical spondylosis. Reviewed, dictated and finalized at location E. ATTENDANT
== END 2023-11-07 14:34 | disposition home or self-care (01) ==
LOC: CHSIMG 14:35
PROVIDERS: PCP Internal Medicine; Visit Provider Internal Medicine
DX: N18.32 Chronic kidney disease, stage 3b (principal); I12.9 Hypertensive chronic kidney disease with stage 1 through stage 4 chronic kidney disease, or unspecified chronic kidney disease; R51.9 Headache, unspecified; M43.02 Spondylolysis, cervical region
CPT/HCPCS: 72040

== ENCOUNTER 2024-08-06 09:59 | Outpatient (CLI) | payer MEDICARE, SELFPAY ==
[2024-08-06 10:29] LABS: Hematocrit 51.2 % (40.0-54.0); Mean Corpuscular HGB Conc 35.2 g/dL (32-36); Mean Corpuscular Hemoglobin 32.4 pg (27.0-31.0); Mean Corpuscular Volume 92.1 fL (78.0-102.0); Platelet Count Result 143 K/mm3 (150-420); Red Blood Count 5.56 M/mm3 (4.70-6.10); Red Cell Distribution Width 13.1 % (11.6-14.4); White Blood Count 7.6 K/mm3 (4.8-10.8)
[2024-08-06 11:13] LABS: Albumin Level 3.9 g/dL (3.4-5.0); Anion Gap 11 mmol/L (4-12); Blood Urea Nitrogen 33 mg/dL (7-18); Calcium 9.4 mg/dL (8.5-10.1); Carbon Dioxide 27 mmol/L (21-32); Chloride 101 mmol/L (98-108); Estimated Glomerular Filt Rate 44; Glucose 93 mg/dL (70-99); Osmolality Calculated 295 mOsm/kg (285-295); Phosphorus 4.2 mg/dL (2.6-4.7); Potassium 4.4 mmol/L (3.5-5.1); Sodium 139 mmol/L (136-145)
[2024-08-07 06:54] LABS: Vitamin D 25 Hydroxy 41 ng/mL (30-100)
[2024-08-07 12:44] LABS: Parathyroid Intact 74 pg/mL (16-77)
== END 2024-08-06 10:00 | disposition home or self-care (01) ==
PROVIDERS: PCP Internal Medicine; Visit Provider Internal Medicine Nephrology
DX: N18.31 Chronic kidney disease, stage 3a (principal)
CPT/HCPCS: 36415; 80069; 82306; 83970; 85027

== ENCOUNTER 2025-01-30 07:40 | Outpatient (CLI) | payer MEDICARE, SELFPAY ==
--- OUTSIDE RECORDS SUMMARY | 2025-01-30 07:45 | XMS_ITS | Clinical Summary ---
Author Organization [facility] Address [address] [place] [id number] Care Team Providers Care Assistant Boiler Operator Name Role Phone Luis E Harrington MD Primary Care Provider [phone] Allergies Active Allergy Reactions Criticality Noted Date Comments Citalopram Other (See comments) Low 11/17/2015 disoriented Rosuvastatin Joint pain Low 08/17/2022 Lisinopril Other (See comments) Low 02/16/2016 cough Medications acetaminophen-c affeine 500-65 mg tablet Take 2 tablets by mouth every 4 (four) hours as needed 08/29/2017 Active cholecalciferol (VITAMIN D-3) 2,000 unit tablet Take 1 tablet (2,000 Units total) by mouth Active losartan (COZAAR) 100 mg tablet Take 1 tablet (100 mg total) by mouth Active mirtazapine (REMERON) 30 mg tablet Take 1 tablet (30 mg total) by mouth Active senna-docusate (PERICOLACE) 8.6-50 mg Take 1 tablet by mouth as directed Patient takes 1 tab on Mon, Tues, Thur, Fri, Sun and takes 2 tabs on Wed and Sat. Active verapamil ER (VERELAN) 240 mg 24 hr capsule Take 1 capsule (240 mg total) by mouth Active sertraline (ZOLOFT) 50 mg tablet Take 2 tablets (100 mg total) by mouth daily Active mv,calcium,min/ iron/folic/vitK (MULTI FOR HER ORAL) Take 1 tablet by mouth daily Active cetirizine (ZyrTEC) 10 mg tablet Take 1 tablet (10 mg total) by mouth 2 (two) times a day as needed Active clonazePAM (KlonoPIN) 0.5 mg tablet Take 1 tablet (0.5 mg total) by mouth 2 (two) times a day Active albuterol HFA (PROVENTIL HFA,VENTOLIN HFA,PROAIR HFA) 90 mcg/actuation inhaler INHALE 2 PUFFS BY MOUTH EVERY 6 HOURS NEEDED 08/25/2020 Active levoFLOXacin (LEVAQUIN) 750 mg tablet TAKE 1 TABLET BY MOUTH EVERY 48 HOURS 08/25/2020 Active amoxicillin 500 mg capsule TAKE 1 CAPSULE BY MOUTH EVERY 8 HOURS 01/25/2021 Active ibuprofen (ADVIL,MOTRIN) 800 mg tablet Take 800 mg by mouth 3 (three) times a day with meals 01/25/2021 Active sertraline (ZOLOFT) 100 mg tablet 1 tablet (100 mg total) Take two tablets daily (total 200mg) 12/29/2022 Active verapamil SR (CALAN SR) 240 mg CR tablet Take 1 tablet (240 mg total) by mouth nightly at bedtime. 10/28/2022 Active Active Problems Problem Noted Date Diagnosed Date CKD (chronic kidney disease) stage 3, GFR 30-59 ml/min 09/02/2020 CKD (chronic kidney disease) stage 2, GFR 60-89 ml/min 11/21/2018 ADPKD (autosomal dominant polycystic kidney dise ase) 11/21/2018 Renal osteodystrophy 11/21/2018 Essential hypertension, benign 08/29/2018 Encounters Date Type Department Care Team Description 11/13/2024 SARKAR Care Coordination [facility] Care Coordination [address] [place] [phone] Arti Marshall from Last 3 Months Family History Medical History Relation Name Comments Hypertension Father Kidney disease Father Heart disease Maternal Grandmother Cancer Mother Relation Name Status Comments Father Maternal Grandmother Mother Social History Tobacco Use Types Packs/Day Years Used Date Smoking Tobacco: Every Day Cigarettes Smokeless Tobacco: Never Tobacco Cessation:Ready to Q uit: Yes; Counseling Given: No Sex and Gender Information Value Date Recorded Sex Assigned at Not on file Legal Sex Male 9:07 AM RADIATION ONCOLOGY NURSE Gender Identity Male 11/21/2018 9:20 AM RADIATION ONCOLOGY NURSE Sexual Orientation Not on file Obstetrics History Last Filed Vital Signs Vital Sign Reading Time Taken Comments Blood Pressure 137/95 08/07/2024 9:49 AM RADIATION ONCOLOGY NURSE Pulse 71 08/07/2024 9:49 AM RADIATION ONCOLOGY NURSE Temperature 36.4 C (97.6 F) 08/07/2024 9:49 AM RADIATION ONCOLOGY NURSE Respiratory Rate - - Oxygen Saturation - - Inhaled Oxygen Concentration - - Weight 99.3 kg (219 lb) 08/07/2024 9:49 AM RADIATION ONCOLOGY NURSE Height 193 cm (6' 4 ) 08/07/2024 9:49 AM RADIATION ONCOLOGY NURSE Body Mass Index 26.66 08/07/2024 9:49 AM RADIATION ONCOLOGY NURSE Plan of Treatment Health Maintenance Due Date Last Done Comments Colon Cancer Screening-Colonoscopy 1975 Depression Screening 1975 Hepatitis C Screening 1975 Prostate Cancer Screening-PSA 1975 DTaP/Tdap/Td Vaccine (3 - Tdap) 1986 5, 1975 Hepatitis B Screening 1993 Regular Well Visit/Exam 18-64 1993 Pneumococcal vaccine <65 (1 of 2 - PCV) 1994 Zoster Vaccine (1 of 2) 2025 Influenza Vaccine (Season Ended) 2025 Insurance [employer] MEDICARE Care Teams Assistant Boiler Operator Relationship Specialty Start Date End Date Luis E Harrington MD PCP - General Internal Medicine 03/06/19
--- OUTSIDE RECORDS SUMMARY | 2025-01-30 07:45 | XMS_ITS | Clinical Summary ---
Author Organization [facility] Address [address] [place] [address] Care Team Providers Care Funeral Director'S Assistant Name Role Phone Luis E Harrington MD Primary Care Provider [phone] Source Comments [facility],non-owned Affiliates and Associated Physician Practices is amultiple site organization consisting of ambulatory clinics and hospital sitesin [place], [place], [place] and [place]. This disclosure is being madepursuant to the Care Everywhere program and may not contain all information available regarding this patient. Last updated 18.[facility] Allergies Active Allergy Reactions Criticality Noted Date Comments Citalopram Other Low 11/17/2015 disoriented Lisinopril Other Low 02/16/2016 cough Medications * Be aware that medications may not be up to date on this document. Alwaysverify current medications with the patient. Acetaminophen-C affeine (EXCEDRIN TENSION HEADACHE) 500-65 MG Take by mouth. 08/29/2017 Active raNITIdine (ZANTAC) 300 MG capsule Take 300 mg by mouth DAILY. 30 tablet 1 04/11/2017 Active LORazepam (ATIVAN) 1 MG tablet Take 1 mg by mouth BID. 03/14/2017 Active losartan (COZAAR) 100 MG tablet Take 100 mg by mouth at bedtime Active mirtazapine (REMERON) 30 MG tablet Take 45 mg by mouth at bedtime Active Sennosides-Docu sate Sodium (SENNA-DOCUSATE SODIUM) 8.6-50 MG Take 1 tablet by mouth at bedtime Active verapamil SR 24hr (VERELAN) 240 MG capsule Take 240 mg by mouth at bedtime Active Cholecalciferol 2000 UNITS Take 1 tablet by mouth once daily Active traMADol (ULTRAM) 50 MG tabletIndicatio ns:Adult type polycystic kidney Take 2 tablets by mouth every 12 hours as needed for Pain 120 tablet 2 11/20/2018 Active Active Problems Problem Noted Date Diagnosed Date Essential hypertension, benign 08/29/2018 Chronic kidney disease (CKD), stage III (moderat e) 08/28/2018 Cystic disease of liver 03/14/2017 Overview (12/17/2017): ADPKD Chronic tension-type headache, not intractable 0 02/28/2016 Adult type polycystic kidney 11/17/2015 Family History Medical History Relation Name Comments Arthritis Brother Heart Disease Father Kidney Disease Father in 60's ESRD; Status: Diabetes Maternal Grandmother Cancer Mother renal carcinoma Hypertension Mother Status: d Diabetes Sister Relation Name Status Comments Brother Father Maternal Grandmother Mother Sister Social History Tobacco Use Types Packs/Day Years Used Date Smoking Tobacco: Former Cigarettes 0.5 28.2 0 09/17/1987 - 11/22/2015 Smokeless Tobacco: Never Tobacco Cessation:Counseling Given: No Alcohol Use Standard Drinks/Week Comments No 0 (1 standard drink = 0.6 oz pur e alcohol) Sex and Gender Information Value Date Recorded Sex Assigned at Not on file Legal Sex Male 5:13 PM BIOANALYST Gender Identity Not on file Sexual Orientation Not on file Last Filed Vital Signs Vital Sign Reading Time Taken Comments Blood Pressure 129/96 08/28/2018 1:33 PM BIOANALYST Pulse 96 08/28/2018 1:33 PM BIOANALYST Temperature 36.3 C (97.4 F) 08/28/2018 1:33 PM BIOANALYST Respiratory Rate 18 02/27/2018 1:48 PM CDT Oxygen Saturation 99% 08/28/2018 1:33 PM BIOANALYST Inhaled Oxygen Concentration - - Weight 115.7 kg (255 lb) 08/28/2018 1:33 PM BIOANALYST Height 190.5 cm (6' 3 ) 08/28/2018 1:33 PM BIOANALYST Body Mass Index 31.87 08/28/2018 1:33 PM BIOANALYST Plan of Treatment Health Maintenance Due Date Last Done Comments OGPAPI (AGES 45-75) - COL ON CA SCREENING 1975 COLON MONITORING 1975 COLONOSCOPY - COLON CA SCREENING 1975 CT COLONOGRAPHY - COLON CA SCREENING 1975 Colorectal Cancer Screening 1975 FIT - COLON CA SCREENING 1975 FLEX SIG - COLON CA SCREENING 1975 LIPID TESTING 1975 Opioid Medication Agreement - Annual 1975 HIV SCREENING 1990 HEPATITIS C SCREENING 01/01/1993 DTAP/TDAP/TD VACCINES (1 - Tdap) 1994 HEPATITIS B VACCINE (1 of 3 - 19+ 3-dose series) 1994 SCREENING FOR DIABETES 05/10/2019 6, 02/16/2016, 11/17/2015 COVID-19 VACCINE (1 - 2023-2 5 season) 2024 DEPRESSION SCREENING 09/17/2024 PNEUMOCOCCAL VACCINE 50+ (1 of 1 - PCV) 2025 ZOSTER VACCINE (1 of 2) 2025 INFLUENZA VACCINE (Season Ended) 2025 HIB VACCINE Aged Out No longer eligi ble based on patient's age to complete this topic HPV VACCINE Aged Out No longer eligi ble based on patient's age to complete this topic MENINGOCOCCAL (Group B) VACCINE SHARED DECISION-MAKING Aged Out No longer eligible based on patient's age to complete this topic MENINGOCOCCAL GROUPS A/C/Y/W VACCINE Aged Out No longer eligible b ased on patient's age to complete this topic Procedures Procedure Name Priority Date/Time Associated Diagnosis Comments RENAL FUNCTION PANEL Routine 05/10/2016 3:26 PM CDT from Last 3 Months or Most Recently Relevant to Health Maintenance Results * RENAL FUNCTION PANEL (05/10/2016 3:26 PM CDT) BUN 20 7 - 26 mg/dL [facility] Creatinine 1.1 0.6 - 1.2 mg/dL [facility] Sodium 141 136 - 145 mmol/L [facility] Potassium 4.1 3.5 - 4.5 mmol/L [facility] Chloride 104 98 - 107 mmol/L [facility] CO2 27 22 - 29 mmol/L [facility] Glucose 99 70 - 115 mg/dL [facility] Albumin 3.7 3.4 - 5.0 g/dL [facility] Calcium 9.7 8.4 - 10.2 mg/dL [facility] Phosphorus 4.0 2.3 - 4.7 mg/dL [facility] Anion Gap 14 8 - 18 [facility] BUN/Creatinine Ratio 18 7 - 23 [facility] Osmolality Calculated 295 270 - 300 mOsm/kg [facility] eGFR >60 >60 mL/min/1.7 3 m2 [facility] Blood specimen (specimen) BLOOD SPECIMEN / Unknown 05/10/2016 3:26 PM CDT 05/10/2016 3:33 PM CDT us Kathryn Mayers MD LAB - CHEMISTRY ORDERABLES Final Result [facility] [address] [phone] from Last 3 Months or Most Recently Relevant to Health Maintenance Insurance MEDICARE MEDICARE Care Teams Funeral Director'S Assistant Relationship Specialty Start Date End Date Luis E Harrington MD [address] [place], [place] [id number] PCP - General 10/21/15
--- OUTSIDE RECORDS SUMMARY | 2025-01-30 07:45 | XMS_ITS | Referral Summary ---
Author Organization [facility] Address [address] [place] [address] Care Team Providers Care Automobile Travel Club Counselor Name Role Phone Luis E Harrington MD Primary Care Provider [phone] Encounters Date Type Department Care Team Description 11/13/2024 [facility] Care Coordination [facility] [address] [place] [id number] Arti Marshall from Last 3 Months Allergies Active Allergy Reactions Criticality Noted Date [...] Renal osteodystrophy 11/21/2018 Essential hypertension, benign 08/29/2018 Social History Tobacco Use Types Packs/Day Years Used Date Smoking Tobacco: Every Day Cigarettes Smokeless Tobacco: Never Tobacco Cessation:Ready to Q uit: Yes; Counseling Given: No Sex and Gender Information Value Date Recorded Sex Assigned at Not on file Legal Sex Male 9:07 AM SUGAR PRESSER Gender Identity Male 11/21/2018 9:20 AM SUGAR PRESSER Sexual Orientation Not on file Last Filed Vital Signs Vital Sign Reading Time Taken Comments Blood Pressure 137/95 08/07/2024 9:49 AM SUGAR PRESSER Pulse 71 08/07/2024 9:49 AM SUGAR PRESSER Temperature 36.4 C (97.6 F) 08/07/2024 9:49 AM SUGAR PRESSER Respiratory Rate - - Oxygen Saturation - - Inhaled Oxygen Concentration - - Weight 99.3 kg (219 lb) 08/07/2024 9:49 AM SUGAR PRESSER Height 193 cm (6' 4 ) 08/07/2024 9:49 AM SUGAR PRESSER Body Mass Index 26.66 08/07/2024 9:49 AM SUGAR PRESSER Plan of Treatment Not on file Insurance [employer] MEDICARE Care Teams Automobile Travel Club Counselor Relationship Specialty Start Date End Date Lusi E Harrington MD PCP - General Internal Medicine 03/06/19
--- OUTSIDE RECORDS SUMMARY | 2025-01-30 07:45 | XMS_ITS | Encounter Summary ---
Author Organization [facility] Address [address] [place] [address] Phone Care Team Providers Care Pediatric Genetic Counselor Name Role Phone No, Physician Primary Care Provider [phone] Luis E Harrington MD Primary Care Provider [phone] Encounter Details Date Type Department Care Team (Latest Contact Info) Description 09/24/2015 Orders Only [facility] Scanning, Provider Social History Tobacco Use Types Packs/Day Years Used Date Smoking Tobacco: Never Assessed Sex and Gender Information Value Date Recorded Sex Assigned at Not on file Legal Sex Male 9:07 AM RECORD PRESS OPERATOR Gender Identity Male 11/21/2018 9:20 AM RECORD PRESS OPERATOR Sexual Orientation Not on file documented as of this encounter Plan of Treatment Not on file documented as of this encounter Procedures Procedure Name Priority Date/Time Associated Diagnosis Comments SCAN - RADIOLOGY/IMAGING 09/24/2015 documented in this encounter Results * SCAN - RADIOLOGY/IMAGING (09/24/2015) Anatomical Region Laterality Modality Other us Provider Scanning Final Result documented in this encounter Visit Diagnoses Not on filedocumented in this encounter Care Teams Pediatric Genetic Counselor Relationship Specialty Start Date End Date No, Physician PCP - General 11/21/18 03/05/19 Luis E Harrington MD PCP - General Internal Medicine 03/06/19 documented as of this encounter
--- OUTSIDE RECORDS SUMMARY | 2025-01-30 07:45 | XMS_ITS | Encounter Summary ---
Author Organization [facility] Address [address] [place] [address] Phone Care Team Providers Care Coke Crusher Operator Name Role Phone No, Physician Primary Care Provider [phone] Luis E Harrington MD Primary Care Provider [phone] Encounter Details Date Type Department Care Team (Latest Contact Info) Description 07/12/2016 Orders Only [facility] Scanning, Provider Social History Tobacco Use Types Packs/Day Years Used Date Smoking Tobacco: Never Assessed Sex and Gender Information Value Date Recorded Sex Assigned at Not on file Legal Sex Male 9:07 AM JACQUARD LOOM FIXER Gender Identity Male 11/21/2018 9:20 AM JACQUARD LOOM FIXER Sexual Orientation Not on file documented as of this encounter Plan of Treatment Not on file documented as of this encounter Procedures Procedure Name Priority Date/Time Associated Diagnosis Comments SCAN - RADIOLOGY/IMAGING 07/12/2016 documented in this encounter Results * SCAN - RADIOLOGY/IMAGING (07/12/2016) Anatomical Region Laterality Modality Other us Provider Scanning Final Result documented in this encounter Visit Diagnoses Not on filedocumented in this encounter Care Teams Coke Crusher Operator Relationship Specialty Start Date End Date No, Physician PCP - General 11/21/18 03/05/19 Luis E Harrington MD PCP - General Internal Medicine 03/06/19 documented as of this encounter
--- OUTSIDE RECORDS SUMMARY | 2025-01-30 07:45 | XMS_ITS | Encounter Summary ---
Author Organization [facility] Address [address] [place] [address] Phone Care Team Providers Care Architectural Drafting Instructor Name Role Phone No, Physician Primary Care Provider Luis E Harrington MD Primary Care Provider [phone] Encounter Details Date Type Department Care Team (Latest Contact Info) Description 08/30/2018 Orders Only [facility] Scanning, Provider Social History Tobacco Use Types Packs/Day Years Used Date Smoking Tobacco: Never Assessed Sex and Gender Information Value Date Recorded Sex Assigned at Not on file Legal Sex Male 9:07 AM CUT OUT PRESS OPERATOR Gender Identity Male 11/21/2018 9:20 AM CUT OUT PRESS OPERATOR Sexual Orientation Not on file documented as of this encounter Plan of Treatment Not on file documented as of this encounter Procedures Procedure Name Priority Date/Time Associated Diagnosis Comments SCAN - LABS 08/30/2018 documented in this encounter Results * SCAN - LABS (08/30/2018) us Provider Scanning Final Result documented in this encounter Visit Diagnoses Not on filedocumented in this encounter Care Teams Architectural Drafting Instructor Relationship Specialty Start Date End Date No, Physician PCP - General 11/21/18 03/05/19 Luis E Harrington MD PCP - General Internal Medicine 03/06/19 documented as of this encounter
[2025-01-30 08:14] LABS: Basophils Absolute Auto 0.03 K/mm3 (0.00-0.10); Basophils Percent Auto 0.4 % (0.0-1.0); Eosinophils Absolute Auto 0.13 K/mm3 (0.02-0.50); Eosinophils Percent Auto 1.6 % (1.0-6.0); Hematocrit 52.9 % (40.0-54.0); Hemoglobin 17.5 g/dL (14.0-18.0); Immature Granulocyte Absolute 0.02 K/mm3 (0.00-0.00); Immature Granulocyte Percent A 0.2 % (0.0-0.0); Immature Platelet Fraction Pct 5.8 % (1.0-7.0); Lymphocytes Absolute Auto 1.58 K/mm3 (1.10-4.50); Lymphocytes Percent Auto 19.5 % (18.0-42.0); Mean Corpuscular HGB Conc 33.1 g/dL (32-36); Mean Corpuscular Hemoglobin 31.6 pg (27.0-31.0); Mean Corpuscular Volume 95.5 fL (78.0-102.0); Mean Platelet Volume 11.8 fl (8.7-11.0); Monocytes Absolute Auto 0.37 K/mm3 (0.10-0.90); Monocytes Percent Auto 4.6 % (2.0-11.0); Neutrophils Absolute Auto 5.99 K/mm3 (1.70-7.20); Neutrophils Percent Auto 73.7 % (50.0-70.0); Platelet Count Result 124 K/mm3 (150-420); Red Blood Count 5.54 M/mm3 (4.70-6.10); Red Cell Distribution Width 12.8 % (11.6-14.4); White Blood Count 8.1 K/mm3 (4.8-10.8)
[2025-01-30 08:46] LABS: Alanine Aminotransferase 32 U/L (6-50); Albumin Level 4.5 g/dL (3.5-5.1); Alkaline Phosphatase 71 U/L (38-126); Anion Gap 6 mmol/L (4-12); Aspartate Amino Transferase 28 U/L (17-59); Bilirubin,Total 0.4 mg/dL (0.2-1.3); Blood Urea Nitrogen 33 mg/dL (9-20); Calcium 9.5 mg/dL (8.4-10.2); Carbon Dioxide 23 mmol/L (22-30); Chloride 109 mmol/L (98-107); Cholesterol 285 mg/dL (0-200); Estimated Glomerular Filt Rate 47; Glucose 81 mg/dL (65-110); HDL Direct 38 mg/dL; LDL Cholesterol Calculated 182 mg/dL (<130); Osmolality Calculated 292 mOsm/kg (285-295); Potassium 4.5 mmol/L (3.4-5.0); Sodium 138 mmol/L (137-145); Total Protein 6.7 g/dL (6.3-8.2); Triglycerides 325 mg/dL (<150)
[2025-01-30 09:16] LABS: Thyroid Stimulating Hormone 0.391 uIU/mL (0.465-4.680)
[2025-01-30 09:18] LABS: Hemoglobin A1C 5.3 % (<5.7)
[2025-01-30 10:56] LABS: Amphetamine Screen Urine Negative (Negative); Barbiturate Screen Urine Negative (Negative); Benzodiazepines Screen Urine Negative (Negative); Cannabinoid Screen Urine Positive (Negative); Cocaine Screen Urine Negative (Negative); Methadone Screen Urine Negative (Negative); Opiate Screen Urine Negative (Negative); Phencyclidine Screen Urine Negative (Negative)
== END 2025-01-30 07:41 | disposition home or self-care (01) ==
LOC: CHSLAB 07:42
PROVIDERS: PCP Internal Medicine
DX: Z79.899 Other long term (current) drug therapy (principal)
CPT/HCPCS: 36415; 80053; 80061; 80307; 83036; 84443; 85025; 85055

== ENCOUNTER 2025-02-14 08:55 | Outpatient (CLI) | payer MEDICARE, SELFPAY ==
--- NOTE | ~2025-02-14 | MR_ITS ---
MRA HEAD History: Cerebral aneurysm screening Technique: 3D time of flight MRA of the head is performed. Findings: The right and left distal vertebral arteries and the basilar and posterior cerebral arterie s are normal. Right and left distal internal carotid arteries and anterior and middle cerebral arteri es are normal. There is no aneurysm, stenosis, or occlusion. Impression: No occlusion, stenosis, or aneurysm. Reviewed, dictated and finalized at location . Impression: No occlusion, stenosis, or aneurysm.
--- OUTSIDE RECORDS SUMMARY | 2025-02-14 08:58 | XMS_ITS | Clinical Summary ---
Author Organization [facility] Address [address] [place] [id number] Care Team Providers Care Legislative Aide Name Role Phone Luis E Harrington MD Primary Care Provider [phone] Allergies Active Allergy Reactions Criticality Noted Date [...] Encounters Date Type Department Care Team Description 02/06/2025 Telephone [facility] Nephrology [address] 5[address] [place] [address] [place] [address] Carla Lee Prior Auth for MRA from Last 3 Months Family History Medical [...] on file Legal Sex Male 9:07 AM TOBACCO DRIER OPERATOR Gender Identity Male 11/21/2018 9:20 AM TOBACCO DRIER OPERATOR Sexual Orientation Not on file Obstetrics History Last Filed Vital Signs Vital Sign Reading Time Taken Comments Blood Pressure 137/95 08/07/2024 9:49 AM TOBACCO DRIER OPERATOR Pulse 71 08/07/2024 9:49 AM TOBACCO DRIER OPERATOR Temperature 36.4 C (97.6 F) 08/07/2024 9:49 AM TOBACCO DRIER OPERATOR Respiratory Rate - - Oxygen Saturation - - Inhaled Oxygen Concentration - - Weight 99.3 kg (219 lb) 08/07/2024 9:49 AM TOBACCO DRIER OPERATOR Height 193 cm (6' 4) 08/07/2024 9:49 AM TOBACCO DRIER OPERATOR Body Mass Index 26.66 08/07/2024 9:49 AM TOBACCO DRIER OPERATOR Plan of Treatment Health Maintenance Due Date [...] Ended) 2025 Insurance [employer] MEDICARE Care Teams Legislative Aide Relationship Specialty Start Date End Date Luis E Harrington MD PCP - General Internal Medicine 03/06/19
--- OUTSIDE RECORDS SUMMARY | 2025-02-14 08:58 | XMS_ITS | Clinical Summary ---
Author Organization [facility] Address [address] [place] [address] Care Team Providers Care Well Logging Captain Mud Analysis Name Role Phone Luis E Harrington MD Primary Care Provider [phone] Source Comments [facility],non-owned Affiliates and Associated Physician Practices is amultiple site organization consisting of ambulatory clinics and hospital sitesin [place], [place], [place] and [place]. This disclosure is being madepursuant to the Care Everywhere program and may not contain all information available regarding this patient. Last updated 18.[facility] Allergies Active Allergy Reactions Criticality Noted Date [...] on file Legal Sex Male 5:13 PM PROMOTIONS COORDINATOR Gender Identity Not on file Sexual Orientation Not on file Last Filed Vital Signs Vital Sign Reading Time Taken Comments Blood Pressure 129/96 08/28/2018 1:33 PM PROMOTIONS COORDINATOR Pulse 96 08/28/2018 1:33 PM PROMOTIONS COORDINATOR Temperature 36.3 C (97.4 F) 08/28/2018 1:33 PM PROMOTIONS COORDINATOR Respiratory Rate 18 02/27/2018 1:48 PM CDT Oxygen Saturation 99% 08/28/2018 1:33 PM PROMOTIONS COORDINATOR Inhaled Oxygen Concentration - - Weight 115.7 kg (255 lb) 08/28/2018 1:33 PM PROMOTIONS COORDINATOR Height 190.5 cm (6' 3) 08/28/2018 1:33 PM PROMOTIONS COORDINATOR Body Mass Index 31.87 08/28/2018 1:33 PM PROMOTIONS COORDINATOR Plan of Treatment Health Maintenance Due Date [...] CDT) BUN 20 7 - 26 mg/dL [facility] Creatinine 1.1 0.6 - 1.2 mg/dL [facility] Sodium 141 136 - 145 mmol/L [facility] Potassium 4.1 3.5 - 4.5 mmol/L [facility] Chloride 104 98 - 107 mmol/L [facility] CO2 27 22 - 29 mmol/L [facility] Glucose 99 70 - 115 mg/dL [facility] Albumin 3.7 3.4 - 5.0 g/dL [facility] Calcium 9.7 8.4 - 10.2 mg/dL [facility] Phosphorus 4.0 2.3 - 4.7 mg/dL [facility] Anion Gap 14 8 - 18 [facility] BUN/Creatinine Ratio 18 7 - 23 [facility] Osmolality Calculated 295 270 - 300 mOsm/kg [facility] eGFR >60 >60 mL/min/1.7 3 m2 [facility] Blood specimen (specimen) BLOOD SPECIMEN / Unknown 05/10/2016 3:26 PM CDT 05/10/2016 3:33 PM CDT us Kathryn Mayers MD LAB - CHEMISTRY ORDERABLES Final Result [facility] [address] [phone] from Last 3 Months or Most Recently Relevant to Health Maintenance Insurance MEDICARE MEDICARE Care Teams Well Logging Captain Mud Analysis Relationship Specialty Start Date End Date Luis E Harrington MD [address] [place], [place] [id number] PCP - General 10/21/15
--- OUTSIDE RECORDS SUMMARY | 2025-02-14 08:58 | XMS_ITS | Encounter Summary ---
Author Organization [facility] Address [address] [place] [address] Phone Care Team Providers Care Junior Accountant Name Role Phone No, Physician Primary Care Provider [phone] Luis E Harrington MD Primary Care Provider [phone] Encounter Details Date Type Department Care Team (Latest Contact Info) Description 09/24/2015 Orders Only [facility] Scanning, Provider Social History Tobacco Use Types Packs/Day Years Used Date Smoking Tobacco: Never Assessed Sex and Gender Information Value Date Recorded Sex Assigned at Not on file Legal Sex Male 9:07 AM SOFTWARE SYSTEMS ENGINEER Gender Identity Male 11/21/2018 9:20 AM SOFTWARE SYSTEMS ENGINEER Sexual Orientation Not on file documented as [...] on filedocumented in this encounter Care Teams Junior Accountant Relationship Specialty Start Date End Date No, Physician PCP - General 11/21/18 03/05/19 Luis E Harrington MD PCP - General Internal Medicine 03/06/19 documented as of this encounter
--- OUTSIDE RECORDS SUMMARY | 2025-02-14 08:58 | XMS_ITS | Encounter Summary ---
Author Organization [facility] Address [address] [place] [address] Phone Care Team Providers Care Women'S Activities Adviser Name Role Phone No, Physician Primary Care Provider Luis E Harrington MD Primary Care Provider [phone] Encounter Details Date Type Department Care Team (Latest Contact Info) Description 08/30/2018 Orders Only [facility] Scanning, Provider Social History Tobacco Use Types Packs/Day Years Used Date Smoking Tobacco: Never Assessed Sex and Gender Information Value Date Recorded Sex Assigned at Not on file Legal Sex Male 9:07 AM MANAGER TRANSITION Gender Identity Male 11/21/2018 9:20 AM MANAGER TRANSITION Sexual Orientation Not on file documented as of this encounter Plan of Treatment Not on file documented as of this encounter Procedures Procedure Name Priority Date/Time Associated Diagnosis Comments SCAN - LABS 08/30/2018 documented in this encounter Results * SCAN - LABS (08/30/2018) us Provider Scanning Final Result documented in this encounter Visit Diagnoses Not on filedocumented in this encounter Care Teams Women'S Activities Adviser Relationship Specialty Start Date End Date No, Physician PCP - General 11/21/18 03/05/19 Luis E Harrington MD PCP - General Internal Medicine 03/06/19 documented as of this encounter
--- OUTSIDE RECORDS SUMMARY | 2025-02-14 08:58 | XMS_ITS | Referral Summary ---
Author Organization [facility] Address [address] [place] [address] Care Team Providers Care Training Officer Name Role Phone Luis E Harrington MD Primary Care Provider [phone] Encounters Date Type Department Care Team Description 02/06/2025 Telephone [facility] Nephrology [address] [facility] 5[address] [place] [address] [place] [address] Carla Lee Prior Auth for MRA from Last 3 Months Allergies Active Allergy [...] on file Legal Sex Male 9:07 AM RN RADIOLOGY Gender Identity Male 11/21/2018 9:20 AM RN RADIOLOGY Sexual Orientation Not on file Last Filed Vital Signs Vital Sign Reading Time Taken Comments Blood Pressure 137/95 08/07/2024 9:49 AM RN RADIOLOGY Pulse 71 08/07/2024 9:49 AM RN RADIOLOGY Temperature 36.4 C (97.6 F) 08/07/2024 9:49 AM RN RADIOLOGY Respiratory Rate - - Oxygen Saturation - - Inhaled Oxygen Concentration - - Weight 99.3 kg (219 lb) 08/07/2024 9:49 AM RN RADIOLOGY Height 193 cm (6' 4) 08/07/2024 9:49 AM RN RADIOLOGY Body Mass Index 26.66 08/07/2024 9:49 AM RN RADIOLOGY Plan of Treatment Not on file Insurance [facility] MEDIC[facility] Care Teams Training Officer Relationship Specialty Start Date End Date Luis E Harrington MD PCP - General Internal Medicine 03/06/19
--- OUTSIDE RECORDS SUMMARY | 2025-02-14 08:58 | XMS_ITS | Encounter Summary ---
Author Organization [facility] Address [address] [place] [address] Phone Care Team Providers Care Cleaner Operator Name Role Phone No, Physician Primary Care Provider [phone] Luis E Harrington MD Primary Care Provider [phone] Encounter Details Date Type Department Care Team (Latest Contact Info) Description 07/12/2016 Orders Only [facility] NEPHROLOG[facility] Scanning, Provider Social History Tobacco Use Types Packs/Day Years Used Date Smoking Tobacco: Never Assessed Sex and Gender Information Value Date Recorded Sex Assigned at Not on file Legal Sex Male 9:07 AM ABSORPTION AND ADSORPTION ENGINEER Gender Identity Male 11/21/2018 9:20 AM ABSORPTION AND ADSORPTION ENGINEER Sexual Orientation Not on file documented [...] on filedocumented in this encounter Care Teams Cleaner Operator Relationship Specialty Start Date End Date No, Physician PCP - General 11/21/18 03/05/19 Luis E Harrington MD PCP - General Internal Medicine 03/06/19 documented as of this encounter
[2025-02-14 09:35] LABS: Basophils Absolute Auto 0.03 K/mm3 (0.00-0.10); Basophils Percent Auto 0.4 % (0.0-1.0); Eosinophils Absolute Auto 0.09 K/mm3 (0.02-0.50); Eosinophils Percent Auto 1.2 % (1.0-6.0); Hematocrit 53.6 % (40.0-54.0); Immature Granulocyte Absolute 0.02 K/mm3 (0.00-0.00); Immature Granulocyte Percent A 0.3 % (0.0-0.0); Immature Platelet Fraction Pct 7.1 % (1.0-7.0); Lymphocytes Absolute Auto 1.36 K/mm3 (1.10-4.50); Lymphocytes Percent Auto 17.6 % (18.0-42.0); Mean Corpuscular HGB Conc 33.6 g/dL (32-36); Mean Corpuscular Hemoglobin 31.7 pg (27.0-31.0); Mean Corpuscular Volume 94.4 fL (78.0-102.0); Mean Platelet Volume 11.8 fl (8.7-11.0); Monocytes Absolute Auto 0.36 K/mm3 (0.10-0.90); Monocytes Percent Auto 4.7 % (2.0-11.0); Neutrophils Absolute Auto 5.87 K/mm3 (1.70-7.20); Neutrophils Percent Auto 75.8 % (50.0-70.0); Platelet Count Result 119 K/mm3 (150-420); Red Blood Count 5.68 M/mm3 (4.70-6.10); Red Cell Distribution Width 12.6 % (11.6-14.4); White Blood Count 7.7 K/mm3 (4.8-10.8)
[2025-02-14 09:59] LABS: Albumin Level 4.5 g/dL (3.5-5.1); Anion Gap 6 mmol/L (4-12); Blood Urea Nitrogen 30 mg/dL (9-20); Calcium 9.4 mg/dL (8.4-10.2); Carbon Dioxide 28 mmol/L (22-30); Chloride 103 mmol/L (98-107); Estimated Glomerular Filt Rate 46; Glucose 79 mg/dL (65-110); Osmolality Calculated 289 mOsm/kg (285-295); Phosphorus 3.4 mg/dL (2.5-4.5); Potassium 4.1 mmol/L (3.4-5.0); Sodium 137 mmol/L (137-145)
[2025-02-14 10:16] LABS: Vitamin D 25 Hydroxy 55.1 ng/mL
[2025-02-16 15:53] LABS: Parathyroid Intact 50 pg/mL (16-77)
== END 2025-02-14 08:56 | disposition home or self-care (01) ==
PROVIDERS: PCP Internal Medicine; Visit Provider Internal Medicine Nephrology
DX: Q61.2 Polycystic kidney, adult type (principal); N18.31 Chronic kidney disease, stage 3a
CPT/HCPCS: 36415; 70544; 80069; 82306; 83970; 85025; 85027; 85055

== ENCOUNTER 2025-06-11 18:45 | Emergency (ER) | payer MEDICARE, SELFPAY ==
[2025-06-11 18:45] VITALS: BP 95/75; PULSE 88; RESP 14; TEMP 36.5; O2SAT 95
--- OUTSIDE RECORDS SUMMARY | 2025-06-11 18:53 | XMS_ITS | Clinical Summary ---
Author Organization [facility] Address [address] [facility] [place] [address] Care Team Providers Care Certified Drug Counselor Name Role Phone Luis E Harrington MD Primary Care Provider [phone] Source Comments [facility],non-owned Affiliates and Associated Physician Practices is amultiple site organization consisting of ambulatory clinics and hospital sitesin [place], [place], [place] and [place]. This disclosure is being madepursuant to the Care Everywhere program and may not contain all information available regarding this patient. Last updated 18.[facility] Allergies Active Allergy Reactions Criticality Noted Date [...] on file Legal Sex Male 5:13 PM PRIMARY HEALTH CARE NURSE Gender Identity Not on file Sexual Orientation Not on file Last Filed Vital Signs Vital Sign Reading Time Taken Comments Blood Pressure 129/96 08/28/2018 1:33 PM PRIMARY HEALTH CARE NURSE Pulse 96 08/28/2018 1:33 PM PRIMARY HEALTH CARE NURSE Temperature 36.3 C (97.4 F) 08/28/2018 1:33 PM PRIMARY HEALTH CARE NURSE Respiratory Rate 18 02/27/2018 1:48 PM CDT Oxygen Saturation 99% 08/28/2018 1:33 PM PRIMARY HEALTH CARE NURSE Inhaled Oxygen Concentration - - Weight 115.7 kg (255 lb) 08/28/2018 1:33 PM PRIMARY HEALTH CARE NURSE Height 190.5 cm (6' 3) 08/28/2018 1:33 PM PRIMARY HEALTH CARE NURSE Body Mass Index 31.87 08/28/2018 1:33 PM PRIMARY HEALTH CARE NURSE Plan of Treatment Health Maintenance Due [...] SCREENING FOR DIABETES 05/10/2019 6, 02/16/2016, 11/17/2015 DEPRESSION SCREENING 09/17/2024 PNEUMOCOCCAL VACCINE 50+ (1 of 1 - PCV) 2025 ZOSTER VACCINE (1 of 2) 2025 COVID-19 VACCINE (1 - 2023-2 5 season) 2025 INFLUENZA VACCINE (#1) 2025 HIB VACCINE Aged Out No longer [...] CDT) BUN 20 7 - 26 mg/dL [facility] Creatinine 1.1 0.6 - 1.2 mg/dL [facility] Sodium 141 136 - 145 mmol/L [facility] Potassium 4.1 3.5 - 4.5 mmol/L [facility] Chloride 104 98 - 107 mmol/L [facility] CO2 27 22 - 29 mmol/L [facility] Glucose 99 70 - 115 mg/dL [facility] Albumin 3.7 3.4 - 5.0 g/dL [facility] Calcium 9.7 8.4 - 10.2 mg/dL [facility] Phosphorus 4.0 2.3 - 4.7 mg/dL [facility] Anion Gap 14 8 - 18 [facility] BUN/Creatinine Ratio 18 7 - 23 [facility] Osmolality Calculated 295 270 - 300 mOsm/kg [facility] eGFR >60 >60 mL/min/1.7 3 m2 [facility] Blood specimen (specimen) BLOOD SPECIMEN / Unknown 05/10/2016 3:26 PM CDT 05/10/2016 3:33 PM CDT us Kathryn Mayers MD LAB - CHEMISTRY ORDERABLES Final Result [facility] [address] [phone] from Last 3 Months or Most Recently Relevant to Health Maintenance Insurance MEDICARE MEDICARE Care Teams Certified Drug Counselor Relationship Specialty Start Date End Date Luis E Harrington MD [address] [place], [place] [id number] PCP - General 10/21/15
--- OUTSIDE RECORDS SUMMARY | 2025-06-11 18:53 | XMS_ITS | Encounter Summary ---
Author Organization [facility] Address [address] [place] [address] Phone Care Team Providers Care Lumber Planer Name Role Phone No, Physician Primary Care Provider [phone] Luis E Harrington MD Primary Care Provider [phone] Encounter Details Date Type Department Care Team (Latest Contact Info) Description 08/30/2018 Orders Only [facility] Scanning, Provider Social History Tobacco Use Types Packs/Day Years Used Date Smoking Tobacco: Never Assessed Sex and Gender Information Value Date Recorded Sex Assigned at Not on file Legal Sex Male 9:07 AM SENIOR TELLER Gender Identity Male 11/21/2018 9:20 AM SENIOR TELLER Sexual Orientation Not on file documented as of this encounter Plan of Treatment Not on file documented as of this encounter Procedures Procedure Name Priority Date/Time Associated Diagnosis Comments SCAN - LABS 08/30/2018 documented in this encounter Results * SCAN - LABS (08/30/2018) us Provider Scanning Final Result documented in this encounter Visit Diagnoses Not on filedocumented in this encounter Care Teams Lumber Planer Relationship Specialty Start Date End Date No, Physician PCP - General 11/21/18 03/05/19 Luis E Harrington MD PCP - General Internal Medicine 03/06/19 documented as of this encounter
--- OUTSIDE RECORDS SUMMARY | 2025-06-11 18:53 | XMS_ITS | Encounter Summary ---
Author Organization [facility] Address [address] [place] [address] Phone Care Team Providers Care Director Part Name Role Phone No, Physician Primary Care Provider Luis E Harrington MD Primary Care Provider [phone] Encounter Details Date Type Department Care Team (Latest Contact Info) Description 07/12/2016 Orders Only [facility] Scanning, Provider Social History Tobacco Use Types Packs/Day Years Used Date Smoking Tobacco: Never Assessed Sex and Gender Information Value Date Recorded Sex Assigned at Not on file Legal Sex Male 9:07 AM CABIN SUPERVISOR Gender Identity Male 11/21/2018 9:20 AM CABIN SUPERVISOR Sexual Orientation Not on file documented as [...] on filedocumented in this encounter Care Teams Director Part Relationship Specialty Start Date End Date No, Physician PCP - General 11/21/18 03/05/19 Luis E Harrington MD PCP - General Internal Medicine 03/06/19 documented as of this encounter
--- OUTSIDE RECORDS SUMMARY | 2025-06-11 18:53 | XMS_ITS | Clinical Summary ---
Author Organization [facility] Address [address] [place] [id number] Care Team Providers Care Specialty Transformer Assembler Name Role Phone Luis E Harrington MD Primary Care Provider [phone] Allergies Active Allergy Reactions Criticality Noted Date [...] Renal osteodystrophy 11/21/2018 Essential hypertension, benign 08/29/2018 Family History Medical History Relation Name Comments Hypertension Father Kidney disease Father Heart disease Maternal Grandmother Cancer Mother Relation Name Status Comments Father Maternal Grandmother Mother Social History Tobacco Use Types Packs/Day Years Used Date Smoking Tobacco: Every Day Cigarettes Smokeless Tobacco: Never Tobacco Cessation:Ready to Q uit: Not Asked; Counseling Given: Not Answered Sex and Gender Information Value Date Recorded Sex Assigned at Not on file Legal Sex Male 9:07 AM RESAWYER Gender Identity Male 11/21/2018 9:20 AM RESAWYER Sexual Orientation Not on file Obstetrics History Last Filed Vital Signs Vital Sign Reading Time Taken Comments Blood Pressure 124/90 02/19/2025 8:24 AM CDT Pulse 65 02/19/2025 8:24 AM CDT Temperature 36.8 C (98.2 F) 02/19/2025 8:24 AM CDT Respiratory Rate - - Oxygen Saturation - - Inhaled Oxygen Concentration - - Weight 100.2 kg (221 lb) 02/19/2025 8:24 AM CDT Height 193 cm (6' 4) 02/19/2025 8:24 AM CDT Body Mass Index 26.9 02/19/2025 8:24 AM CDT Plan of Treatment Health Maintenance Due Date Last Done Comments Colon Cancer Screening-Colonoscopy 1975 Depression Screening 1975 Hepatitis C Screening 1975 Prostate Cancer Screening-PSA 1975 DTaP/Tdap/Td Vaccine (3 - Tdap) 1986 5, 1975 Hepatitis B Screening 1993 Regular Well Visit/Exam 18-64 1993 Pneumococcal vaccine <65 (1 of 2 - PCV) 1994 Zoster Vaccine (1 of 2) 2025 Influenza Vaccine (#1) 2025 Insurance [employer] MEDICARE Care Teams Specialty Transformer Assembler Relationship Specialty Start Date End Date Luis E Harrington MD PCP - General Internal Medicine 03/06/19
--- OUTSIDE RECORDS SUMMARY | 2025-06-11 18:53 | XMS_ITS | Encounter Summary ---
Author Organization [facility] Address [address] [place] [address] Phone Care Team Providers Care Field Marketing Coordinator Name Role Phone No, Physician Primary Care Provider [phone] Luis E Harrington MD Primary Care Provider [phone] Encounter Details Date Type Department Care Team (Latest Contact Info) Description 09/24/2015 Orders Only [facility] Scanning, Provider Social History Tobacco Use Types Packs/Day Years Used Date Smoking Tobacco: Never Assessed Sex and Gender Information Value Date Recorded Sex Assigned at Not on file Legal Sex Male 9:07 AM POTASH FLAKER Gender Identity Male 11/21/2018 9:20 AM POTASH FLAKER Sexual Orientation Not on file documented as [...] on filedocumented in this encounter Care Teams Field Marketing Coordinator Relationship Specialty Start Date End Date No, Physician PCP - General 11/21/18 03/05/19 Luis E Harrington MD PCP - General Internal Medicine 03/06/19 documented as of this encounter
--- NOTE | 2025-06-11 18:58 | PC.NURSE ---
report to shayna salamanca
--- NOTE | 2025-06-11 19:00 | PC.NURSE ---
ASSUMED CARE. REPORT RECEIVED FROM ANDRE DEE.
[2025-06-11] MEDS: DACRIOSE EYE IRRIGATION 118 ML BOTTLE 10 ML EACH EYE (19:14)
[2025-06-11] MEDS: TETRACAINE HCL 0.5% OPHTH SOLN 4 ML BTL 1 DROP EACH EYE (19:15)
[2025-06-11] MEDS: FLUORESCEIN SOD 1 MG/STRIP EACH EYE (19:15)
--- NOTE | 2025-06-11 19:17 | PC.NURSE ---
EYE TRAY SUPPLIES GATHERED AND PLACED AT THE BEDSIDE
--- OUTSIDE RECORDS SUMMARY | 2025-06-11 19:19 | XMS_ITS | Encounter Summary ---
Author Organization [facility] Address [address] [place] [address] Phone Care Team Providers Care Fruit Or Nut Crops Farm Manager Name Role Phone No, Physician Primary Care Provider [phone] Luis E Harrington MD Primary Care Provider [phone] Encounter Details Date Type Department Care Team (Latest Contact Info) Description 09/24/2015 Orders Only [facility] Scanning, Provider Social History Tobacco Use Types Packs/Day Years Used Date Smoking Tobacco: Never Assessed Sex and Gender Information Value Date Recorded Sex Assigned at Not on file Legal Sex Male 9:07 AM SUPERVISOR COOK ROOM Gender Identity Male 11/21/2018 9:20 AM SUPERVISOR COOK ROOM Sexual Orientation Not on file documented as [...] on filedocumented in this encounter Care Teams Fruit Or Nut Crops Farm Manager Relationship Specialty Start Date End Date No, Physician PCP - General 11/21/18 03/05/19 Luis E Harrington MD PCP - General Internal Medicine 03/06/19 documented as of this encounter
--- OUTSIDE RECORDS SUMMARY | 2025-06-11 19:19 | XMS_ITS | Encounter Summary ---
Author Organization [facility] Address [address] [place] [address] Phone Care Team Providers Care Pastoral Assistant Name Role Phone No, Physician Primary Care Provider [phone] Luis E Harrington MD Primary Care Provider [phone] Encounter Details Date Type Department Care Team (Latest Contact Info) Description 07/12/2016 Orders Only [facility] Scanning, Provider Social History Tobacco Use Types Packs/Day Years Used Date Smoking Tobacco: Never Assessed Sex and Gender Information Value Date Recorded Sex Assigned at Not on file Legal Sex Male 9:07 AM VOLUNTEER SPECIALIST Gender Identity Male 11/21/2018 9:20 AM VOLUNTEER SPECIALIST Sexual Orientation Not on file documented as [...] on filedocumented in this encounter Care Teams Pastoral Assistant Relationship Specialty Start Date End Date No, Physician PCP - General 11/21/18 03/05/19 Luis E Harrington MD PCP - General Internal Medicine 03/06/19 documented as of this encounter
--- OUTSIDE RECORDS SUMMARY | 2025-06-11 19:19 | XMS_ITS | Encounter Summary ---
Author Organization [facility] Address [address] [place] [address] Phone Care Team Providers Care Fire Prevention Engineer Name Role Phone No, Physician Primary Care Provider Luis E Harrington MD Primary Care Provider [phone] Encounter Details Date Type Department Care Team (Latest Contact Info) Description 08/30/2018 Orders Only [facility] Scanning, Provider Social History Tobacco Use Types Packs/Day Years Used Date Smoking Tobacco: Never Assessed Sex and Gender Information Value Date Recorded Sex Assigned at Not on file Legal Sex Male 9:07 AM SECURITY CONTROL CENTER OPERATOR Gender Identity Male 11/21/2018 9:20 AM SECURITY CONTROL CENTER OPERATOR Sexual Orientation Not on file documented as of this encounter Plan of Treatment Not on file documented as of this encounter Procedures Procedure Name Priority Date/Time Associated Diagnosis Comments SCAN - LABS 08/30/2018 documented in this encounter Results * SCAN - LABS (08/30/2018) us Provider Scanning Final Result documented in this encounter Visit Diagnoses Not on filedocumented in this encounter Care Teams Fire Prevention Engineer Relationship Specialty Start Date End Date No, Physician PCP - General 11/21/18 03/05/19 Luis E Harrington MD PCP - General Internal Medicine 03/06/19 documented as of this encounter
--- OUTSIDE RECORDS SUMMARY | 2025-06-11 19:19 | XMS_ITS | Clinical Summary ---
Author Organization [facility] Address [address] [facility] [place] [address] Care Team Providers Care Business And Marketing Teacher Name Role Phone Luis E Harrington MD Primary Care Provider [phone] Source Comments [facility],non-owned Affiliates and Associated Physician Practices is amultiple site organization consisting of ambulatory clinics and hospital sitesin [place], [place], [place] and [place]. This disclosure is being madepursuant to the Care Everywhere program and may not contain all information available regarding this patient. Last updated 18.[facility] Allergies Active Allergy Reactions Criticality Noted Date [...] on file Legal Sex Male 5:13 PM HEAD START TEACHER Gender Identity Not on file Sexual Orientation Not on file Last Filed Vital Signs Vital Sign Reading Time Taken Comments Blood Pressure 129/96 08/28/2018 1:33 PM HEAD START TEACHER Pulse 96 08/28/2018 1:33 PM HEAD START TEACHER Temperature 36.3 C (97.4 F) 08/28/2018 1:33 PM HEAD START TEACHER Respiratory Rate 18 02/27/2018 1:48 PM CDT Oxygen Saturation 99% 08/28/2018 1:33 PM HEAD START TEACHER Inhaled Oxygen Concentration - - Weight 115.7 kg (255 lb) 08/28/2018 1:33 PM HEAD START TEACHER Height 190.5 cm (6' 3) 08/28/2018 1:33 PM HEAD START TEACHER Body Mass Index 31.87 08/28/2018 1:33 PM HEAD START TEACHER Plan of Treatment Health Maintenance Due Date [...] CDT) BUN 20 7 - 26 mg/dL [facility] Creatinine 1.1 0.6 - 1.2 mg/dL [facility] Sodium 141 136 - 145 mmol/L [facility] Potassium 4.1 3.5 - 4.5 mmol/L [facility] Chloride 104 98 - 107 mmol/L [facility] CO2 27 22 - 29 mmol/L [facility] Glucose 99 70 - 115 mg/dL [facility] Albumin 3.7 3.4 - 5.0 g/dL [facility] Calcium 9.7 8.4 - 10.2 mg/dL [facility] Phosphorus 4.0 2.3 - 4.7 mg/dL [facility] Anion Gap 14 8 - 18 [facility] BUN/Creatinine Ratio 18 7 - 23 [facility] Osmolality Calculated 295 270 - 300 mOsm/kg [facility] eGFR >60 >60 mL/min/1.7 3 m2 [facility] Blood specimen (specimen) BLOOD SPECIMEN / Unknown 05/10/2016 3:26 PM CDT 05/10/2016 3:33 PM CDT us Kathryn Mayers MD LAB - CHEMISTRY ORDERABLES Final Result [facility] [address] [phone] from Last 3 Months or Most Recently Relevant to Health Maintenance Insurance MEDICARE MEDICARE Care Teams Business And Marketing Teacher Relationship Specialty Start Date End Date Luis E Harrington MD [address] [place], [place] [id number] PCP - General 10/21/15
--- OUTSIDE RECORDS SUMMARY | 2025-06-11 19:19 | XMS_ITS | Clinical Summary ---
Author Organization [facility] Address [address] [place] [address] Care Team Providers Care Christian Science Healer Name Role Phone Luis E Harrington MD Primary Care Provider [phone] Allergies Active Allergy Reactions Criticality Noted Date [...] on file Legal Sex Male 9:07 AM SHOE STAINER Gender Identity Male 11/21/2018 9:20 AM SHOE STAINER Sexual Orientation Not on file Obstetrics History [...] (#1) 2025 Insurance A[employer] MEDICARE Care Teams Christian Science Healer Relationship Specialty Start Date End Date Luis E Harrington MD PCP - General Internal Medicine 03/06/19
--- NOTE | 2025-06-11 19:29 | ED.EYEPROB ---
HPI - Eye Problem General Chief complaint: Eye Problems Stated complaint: right eye foreign body Time Seen by Provider: 06/11/25 18:57 Source: patient Mode of arrival: ambulatory Limitations: no limitations History of Present Illness HPI Narrative: this is a 50-year-old male that has right eye irritation after he was doing some metal work and had a metal shaving enter his right eye and in bed into his right cornea at around the 8 o'clock position with irritation and redness and tearing with photophobia has foreign body sensation with no visual acuity changes. No other injuries patient is not up-to-date with his tetanus. chief complaint: eye pain and eye redness Onset (ago): day(s) Duration: constant Location: right eye Eye Symptoms: redness and foreign body sensation Related Data Home Medications ?Medication ?Instructions ?Recorded ?Confirmed ?Last Taken ?Type clonazepam 0.5 mg tablet 0.25 mg PO BID 07/31/22 10/30/22 09/19/22 05:00 History losartan 100 mg tablet 100 mg PO DAILY 07/31/22 10/30/22 09/18/22 History mirtazapine 30 mg tablet 30 mg PO DAILY 07/31/22 10/30/22 09/18/22 History sertraline 150 mg capsule 150 mg PO DAILY 07/31/22 06/11/25 09/19/22 05:00 History verapamil 240 mg 24 hr 240 mg PO DAILY 07/31/22 06/11/25 09/18/22 History capsule,extended release Allergies Allergy/AdvReac Type Severity Reaction Status Date / Time No Known Allergies Allergy Verified 06/11/25 19:04 Review of Systems Review of Systems: All systems reviewed & are unremarkable except as noted in HPI and below PMFSH Past Medical History Medical History Polycystic liver disease KENNY (obstructive sleep apnea) CKD (chronic kidney disease) Hypertension High cholesterol Depression with anxiety Surgical History Surgical History Hx of bilateral inguinal hernia repair lap recurrent rt ing hernia rep w/ mesh, lt ing hernia rep w/ mesh, open umb hernia rep performed 09/19/22 H/O vasectomy H/O right inguinal hernia repair Family History Family History Father Heart disease Mother , 54 Hypertension Cancer of kidney Sibling , 51 Diabetes mellitus Heart disease Social History Social History Smoking packs per day: 1 Smoking cigarettes per day: 20.0 Years smoked: 30 Smoking pack-years: 30.00 Smoking status: Current every day smoker Tobacco type: cigarettes Alcohol intake: never Substance use: current Substance use type: marijuana Living arrangements: with family Occupation/Education: unemployed Additional occupation/education comments: disabled Spiritual care concerns: No Exam Const: General: healthy appearing and no acute distress Nutritional Appearance: well nourished Orientation/consciousness: patient oriented x3 Limitations: no limitations Eyes: Conjunctivae: conjunctival abnormality Direct Ophthalmoscopy: photophobia Other: Patient with a metal shaving in bed in the right cornea around the 8 o'clock position of the right eye with surrounding erythema Chest: Chest palpation & inspection: normal inspection of the chest Resp: Effort & Inspection: normal respiratory effort Auscultation: clear to auscultation bilaterally Cardio: Rate: regular rate Rhythm: regular rhythm Course Course Emergency Course: patient had is numbed with tetracaine irrigated and needle was used to dislodge the small metal shaving in his eye and antibiotic eyedrops used. Patient updated with his tetanus. Vital Signs Vital signs: Vital Signs Temperature 36.5 C 06/11/25 18:45 Pulse Rate 88 06/11/25 18:45 Respiratory Rate 14 06/11/25 18:45 Blood Pressure 95/75 L 06/11/25 18:45 Pulse Oximetry 95 06/11/25 18:45 Oxygen Delivery Room Air 06/11/25 18:45 Temperature 36.5 C 06/11/25 18:45 Pulse Rate 88 06/11/25 18:45 Respiratory Rate 14 06/11/25 18:45 Blood Pressure 95/75 L 06/11/25 18:45 Pulse Oximetry 95 06/11/25 18:45 Oxygen Delivery Room Air 06/11/25 18:45 Procedures FB Removal Eye Foreign Body #1: Foreign Body Removal Date: 06/11/25 Foreign Body Removal Time: 19:33 Time Out performed: Yes Location: eye (R) Topical anesthetic used: tetracaine Foreign body: metal Evidence of corneal penetration: Yes Technique: irrigation, eye wash bottle, cotton tip swab and needle Procedure performed under: direct visualization with magnification Post-procedure medication: ophthalmic antibiotic Foreign Body Removal Narrative: successful removal of metal shaving from his right cornea and started on antibiotics. Critical Care Time Critical Care Time Critical Care Time: No Discharge Plan Discharge Clinical Impression: Foreign body in eye Patient Disposition: Home Condition: Stable Instructions: Antibiotic Form, Eye Foreign Body (ED) Additional Instructions: Advised patient to take medication as prescribed and to follow with primary care physician / sort worker within the next 3 to 5 days for further evaluation and treatment. Patient Language: Fijian Prescriptions: New neomycin-polymyxin B-dexameth [Maxitrol] 3.5mg/mL-10,000 unit/mL-0.1 % drops,suspension 1 drp RIGHT EYE Q6H 7 Days Qty: 5 0RF tramadol 50 mg tablet 50 mg PO Q6H PRN (Reason: pain) Qty: 20 0RF No Action clonazepam 0.5 mg tablet 0.25 mg PO BID Rx Instructions: administer 30 minutes before bedtime sertraline 150 mg capsule 150 mg PO DAILY mirtazapine 30 mg tablet 30 mg PO DAILY losartan 100 mg tablet 100 mg PO DAILY Patient Comments: TAKES AT NIGHT verapamil 240 mg capsule,ext rel. pellets 24 hr 240 mg PO DAILY Follow-up/Referrals: Luis E Harrington MD [Primary Care Provider, Internal Medicine]
--- NOTE | 2025-06-11 19:31 | PC.NURSE ---
STANDY BY ASSIST FOR DR MCGUIRE WHILE HE ASSESS'S PATIENTS RIGHT EYE.
[2025-06-11] MEDS: TETANUS,DIPHTHERIA,AC PERTUSSIS ADULT 0.5 ML (ADACEL) IM (19:41)
[2025-06-11] MEDS: NEOMYCIN/POLYMYXIN/DEXAMETH OP SUSP 5 ML BTL 1 DROP RIGHT EYE (19:44)
[2025-06-11 19:54] VITALS: BP 114/76; PULSE 78; RESP 20; O2SAT 100
== END 2025-06-11 19:54 | disposition home or self-care (01) ==
PROVIDERS: Emergency Provider Emergency Medicine; PCP Internal Medicine
DX: T15.91XA Foreign body on external eye, part unspecified, right eye, initial encounter (principal); I12.9 Hypertensive chronic kidney disease with stage 1 through stage 4 chronic kidney disease, or unspecified chronic kidney disease; N18.9 Chronic kidney disease, unspecified; F17.210 Nicotine dependence, cigarettes, uncomplicated; Z79.899 Other long term (current) drug therapy; Z23 Encounter for immunization; W44.E0XA Non-magnetic metal object unspecified, entering into or through a natural orifice, initial encounter
CPT/HCPCS: 65222; 90471; 90715; 99283; A9270